=== PATIENT | male | born 1940 | race Caucasian/White ===

== ENCOUNTER 2022-10-19 10:30 | Oncology outpatient (recurring) (ONCR) | payer MEDICARE, OTHER, SELFPAY ==
[2022-10-05 16:48] LABS: Basophils % 0.3 %; Eosinophils # 0.4 10^3/uL (0.0-0.8); Eosinophils % 3.8 %; Hematocrit 43.2 % (42.0-52.0); Hemoglobin 15.2 g/dL (11.7-16.6); Lymphocytes # 1.7 10^3/uL (0.8-4.8); Lymphocytes % 17.4 %; Mean Corpuscular HGB Conc 35.2 g/dL (30.0-36.0); Mean Corpuscular Hemoglobin 33.2 pg (28.0-34.0); Mean Corpuscular Volume 94.3 fl (80-94); Mean Platelet Volume 9.9 fL (7.4-10.4); Monocytes # 0.6 10^3/uL (0.2-0.9); Monocytes % 5.8 %; Neutrophils # 6.95 10^3/uL (1.8-7.7); Neutrophils % 72.4 %; Nucleated Red Blood Cells % 0 %; Platelet Count 272 10^3/cmm (130-400); Red Blood Count 4.58 10^6/uL (4.1-5.3); Red Cell Distribution Width 12.3 % (12.1-15.1); White Blood Count 9.6 10^3/uL (4.0-10.0)
[2022-10-05 17:20] VITALS: BP 157/76; PULSE 61; O2SAT 99
[2022-10-19 10:40] VITALS: BP 126/65; PULSE 60; RESP 18; TEMP 36.3; O2SAT 96
[2022-10-19 11:21] LABS: Basophils % 0.4 %; Eosinophils # 0.3 10^3/uL (0.0-0.8); Eosinophils % 4.6 %; Hematocrit 41.8 % (42.0-52.0); Hemoglobin 14.1 g/dL (11.7-16.6); Lymphocytes # 1.7 10^3/uL (0.8-4.8); Lymphocytes % 23.9 %; Mean Corpuscular HGB Conc 33.7 g/dL (30.0-36.0); Mean Corpuscular Hemoglobin 32.3 pg (28.0-34.0); Mean Corpuscular Volume 95.7 fl (80-94); Mean Platelet Volume 9.8 fL (7.4-10.4); Monocytes # 0.4 10^3/uL (0.2-0.9); Monocytes % 6.3 %; Neutrophils # 4.52 10^3/uL (1.8-7.7); Neutrophils % 64.4 %; Nucleated Red Blood Cells % 0 %; Platelet Count 228 10^3/cmm (130-400); Red Blood Count 4.37 10^6/uL (4.1-5.3)
[2022-10-19 13:39] VITALS: BP 137/62; PULSE 66; RESP 16; TEMP 36.8; O2SAT 97
== END 2022-10-25 23:59 | disposition home or self-care (01) ==
PROVIDERS: PCP Family Medicine; Visit Provider Internal Medicine Medical Oncology
DX: E83.110 Hereditary hemochromatosis (principal)
CPT/HCPCS: 36415; 85025; 99195; 99205

== ENCOUNTER 2022-11-13 09:19 | Oncology outpatient (recurring) (ONCR) | payer MEDICARE, OTHER, SELFPAY ==
[2022-11-02 10:12] LABS: Basophils % 0.6 %; Eosinophils # 0.4 10^3/uL (0.0-0.8); Eosinophils % 7.7 %; Hematocrit 38.3 % (42.0-52.0); Lymphocytes # 1.5 10^3/uL (0.8-4.8); Lymphocytes % 32.2 %; Mean Corpuscular HGB Conc 33.9 g/dL (30.0-36.0); Mean Corpuscular Hemoglobin 32.3 pg (28.0-34.0); Mean Corpuscular Volume 95.3 fl (80-94); Mean Platelet Volume 9.7 fL (7.4-10.4); Monocytes # 0.5 10^3/uL (0.2-0.9); Monocytes % 10.3 %; Neutrophils # 2.34 10^3/uL (1.8-7.7); Nucleated Red Blood Cells % 0 %; Platelet Count 240 10^3/cmm (130-400); Red Blood Count 4.02 10^6/uL (4.1-5.3); Red Cell Distribution Width 12.9 % (12.1-15.1); White Blood Count 4.8 10^3/uL (4.0-10.0)
[2022-11-02 10:22] VITALS: BP 134/87; PULSE 75; RESP 18; TEMP 36.4; O2SAT 97
[2022-11-02 13:35] VITALS: BP 150/71; PULSE 54; RESP 17; TEMP 36.9; O2SAT 98
--- NOTE | 2022-11-02 13:36 | PC.NURSE ---
Dr Henderson reviewed the lab for today of cbc with iron levels not reported as yet due to breakdown with no phlebotomy today and return 2 weeks.mm
[2022-11-02 13:52] LABS: Ferritin 887 ng/mL (30-400); Iron 133 ug/dL (59-158); Percent Saturation 58.3 % (20-50); Total Iron Binding Capacity 228 mcg/dl; Unsaturated Iron Binding 95 ug/dL (112-347)
[2022-11-02 14:15] VITALS: BP 140/78; PULSE 68; RESP 18; TEMP 36.6; O2SAT 98
--- NOTE | 2022-11-02 16:33 | PC.NURSE ---
Lab results reviewed by Dr Henderson with no phlebotomy today and return in 2 weeks for labs and ov.IV site decontinued with no issues or concerns.sylvia
[2022-11-13 09:31] VITALS: BP 146/70; PULSE 56; RESP 18; TEMP 36.4; O2SAT 97
[2022-11-13 09:51] LABS: Basophils % 0.8 %; Eosinophils # 0.3 10^3/uL (0.0-0.8); Eosinophils % 6.2 %; Hemoglobin 13.7 g/dL (11.7-16.6); Lymphocytes # 1.4 10^3/uL (0.8-4.8); Lymphocytes % 27.9 %; Mean Corpuscular HGB Conc 33.4 g/dL (30.0-36.0); Mean Corpuscular Hemoglobin 32.1 pg (28.0-34.0); Mean Platelet Volume 9.7 fL (7.4-10.4); Monocytes # 0.4 10^3/uL (0.2-0.9); Neutrophils # 2.84 10^3/uL (1.8-7.7); Neutrophils % 56.9 %; Nucleated Red Blood Cells % 0 %; Platelet Count 240 10^3/cmm (130-400); Red Blood Count 4.27 10^6/uL (4.1-5.3)
[2022-11-13 10:06] LABS: Ferritin 608 ng/mL (30-400); Iron 85 ug/dL (59-158); Percent Saturation 37.7 % (20-50); Total Iron Binding Capacity 225 mcg/dl; Unsaturated Iron Binding 140 ug/dL (112-347)
== END 2022-11-24 23:59 | disposition home or self-care (01) ==
PROVIDERS: PCP Family Medicine; Visit Provider Internal Medicine Medical Oncology
DX: E83.110 Hereditary hemochromatosis (principal)
CPT/HCPCS: 36415; 82728; 83540; 83550; 85025; 99213

== ENCOUNTER 2022-12-13 11:45 | Oncology outpatient (recurring) (ONCR) | payer MEDICARE, OTHER, SELFPAY ==
[2022-12-11 09:20] VITALS: BP 149/76; PULSE 68; RESP 18; TEMP 36.3; O2SAT 96
[2022-12-11 09:48] LABS: Basophils % 0.6 %; Eosinophils # 0.4 10^3/uL (0.0-0.8); Eosinophils % 6.4 %; Hematocrit 39.8 % (42.0-52.0); Hemoglobin 13.5 g/dL (11.7-16.6); Lymphocytes # 1.6 10^3/uL (0.8-4.8); Lymphocytes % 23.2 %; Mean Corpuscular HGB Conc 33.9 g/dL (30.0-36.0); Mean Corpuscular Hemoglobin 32.4 pg (28.0-34.0); Mean Corpuscular Volume 95.4 fl (80-94); Mean Platelet Volume 10.4 fL (7.4-10.4); Monocytes # 0.5 10^3/uL (0.2-0.9); Monocytes % 7.4 %; Neutrophils # 4.25 10^3/uL (1.8-7.7); Neutrophils % 62.1 %; Nucleated Red Blood Cells % 0 %; Platelet Count 246 10^3/cmm (130-400); Red Blood Count 4.17 10^6/uL (4.1-5.3); Red Cell Distribution Width 12.7 % (12.1-15.1); White Blood Count 6.9 10^3/uL (4.0-10.0)
[2022-12-11 10:41] LABS: Ferritin 579 ng/mL (30-400); Iron 76 ug/dL (59-158); Percent Saturation 35.6 % (20-50); Total Iron Binding Capacity 213 mcg/dl; Unsaturated Iron Binding 137 ug/dL (112-347)
[2022-12-13 11:50] VITALS: BP 135/72; PULSE 73; RESP 18; TEMP 36.4; O2SAT 98
[2022-12-13 12:06] VITALS: BP 132/60; PULSE 59; RESP 18; TEMP 36.6; O2SAT 97
[2022-12-13 13:05] VITALS: BP 138/72; PULSE 88; RESP 18; TEMP 36.6; O2SAT 98
--- NOTE | 2022-12-13 16:02 | PC.NURSE ---
Patient returned today for the phlebotomy that was unsuccessful on 12-11 with #18 intracath needle placed in upper left arm with good blood return and 500ml removed by weight. He tolerated it well with no issues or concerns.mm
== END 2022-12-25 23:59 | disposition home or self-care (01) ==
PROVIDERS: Internal Medicine Medical Oncology; PCP Family Medicine; Visit Provider Internal Medicine Medical Oncology
DX: E83.110 Hereditary hemochromatosis (principal)
CPT/HCPCS: 82728; 83540; 83550; 85025; 99195; 99214

== ENCOUNTER 2023-01-08 10:57 | Oncology outpatient (recurring) (ONCR) | payer MEDICARE, OTHER, SELFPAY ==
[2023-01-08 11:56] VITALS: BP 136/68; PULSE 72; RESP 18; TEMP 36.4; O2SAT 96
[2023-01-08 12:10] LABS: Basophils % 0.7 %; Eosinophils # 0.4 10^3/uL (0.0-0.8); Eosinophils % 6.9 %; Hematocrit 40.5 % (42.0-52.0); Hemoglobin 14.1 g/dL (11.7-16.6); Lymphocytes # 1.9 10^3/uL (0.8-4.8); Lymphocytes % 31.4 %; Mean Corpuscular HGB Conc 34.8 g/dL (30.0-36.0); Mean Corpuscular Hemoglobin 32.6 pg (28.0-34.0); Mean Corpuscular Volume 93.5 fl (80-94); Mean Platelet Volume 10.7 fL (7.4-10.4); Monocytes # 0.4 10^3/uL (0.2-0.9); Monocytes % 7.2 %; Neutrophils # 3.19 10^3/uL (1.8-7.7); Neutrophils % 53.6 %; Nucleated Red Blood Cells % 0 %; Platelet Count 248 10^3/cmm (130-400); Red Blood Count 4.33 10^6/uL (4.1-5.3); Red Cell Distribution Width 12.6 % (12.1-15.1)
[2023-01-08 15:20] VITALS: BP 144/72; PULSE 65; RESP 18; TEMP 36.3; O2SAT 95
== END 2023-01-25 23:59 | disposition home or self-care (01) ==
LOC: ONCMED 10:57
PROVIDERS: PCP Family Medicine; Visit Provider Internal Medicine Medical Oncology
DX: E83.110 Hereditary hemochromatosis (principal)
CPT/HCPCS: 36415; 85025; 99195

== ENCOUNTER 2023-02-05 10:27 | Oncology outpatient (recurring) (ONCR) | payer MEDICARE, OTHER, SELFPAY ==
[2023-02-05 10:33] VITALS: BP 159/74; PULSE 65; RESP 18; TEMP 36.3; O2SAT 96
[2023-02-05 10:55] LABS: Basophils % 0.5 %; Eosinophils # 0.3 10^3/uL (0.0-0.8); Eosinophils % 5.1 %; Lymphocytes # 1.8 10^3/uL (0.8-4.8); Lymphocytes % 30.8 %; Mean Corpuscular HGB Conc 34.6 g/dL (30-55); Mean Corpuscular Hemoglobin 32.3 pg (27-33); Mean Corpuscular Volume 93.3 fl (82-101); Mean Platelet Volume 9.9 fL (7.4-10.4); Monocytes # 0.4 10^3/uL (0.2-0.9); Monocytes % 6.6 %; Neutrophils # 3.38 10^3/uL (1.8-7.7); Neutrophils % 56.8 %; Nucleated Red Blood Cells % 0 %; Platelet Count 215 10^3/cmm (157-399); Red Blood Count 4.18 10^6/uL (3.85-5.65); Red Cell Distribution Width 12.5 % (12.1-15.1); White Blood Count 5.94 10^3/uL (3.29-11.43)
[2023-02-05 12:42] VITALS: BP 152/65; PULSE 68; RESP 18; TEMP 36.2; O2SAT 97
== END 2023-02-24 23:59 | disposition home or self-care (01) ==
LOC: ONCMED 10:27
PROVIDERS: PCP Family Medicine; Visit Provider Internal Medicine Medical Oncology
DX: E83.110 Hereditary hemochromatosis (principal)
CPT/HCPCS: 36415; 85025; 99195

== ENCOUNTER 2023-03-12 13:09 | Oncology outpatient (recurring) (ONCR) | payer MEDICARE, OTHER, SELFPAY ==
[2023-03-12 13:20] VITALS: BP 147/84; PULSE 63; RESP 16; TEMP 36.4; O2SAT 97
[2023-03-12 13:47] LABS: Basophils % 0.6 %; Eosinophils # 0.3 10^3/uL (0.0-0.8); Eosinophils % 4.5 %; Hematocrit 41.1 % (37-53); Lymphocytes # 1.9 10^3/uL (0.8-4.8); Lymphocytes % 28.9 %; Mean Corpuscular HGB Conc 34.3 g/dL (30-55); Mean Corpuscular Hemoglobin 32.3 pg (27-33); Mean Corpuscular Volume 94.3 fl (82-101); Mean Platelet Volume 10.1 fL (7.4-10.4); Monocytes # 0.5 10^3/uL (0.2-0.9); Monocytes % 7.6 %; Neutrophils # 3.86 10^3/uL (1.8-7.7); Neutrophils % 58.2 %; Nucleated Red Blood Cells % 0 %; Platelet Count 229 10^3/cmm (157-399); Red Blood Count 4.36 10^6/uL (3.85-5.65); Red Cell Distribution Width 12.7 % (12.1-15.1); White Blood Count 6.62 10^3/uL (3.29-11.43)
[2023-03-12 14:13] LABS: Alanine Aminotransferase 19 U/L (0-41); Albumin Level 4.4 g/dL (3.5-5.2); Alkaline Phosphatase 51 U/L (40-130); Anion Gap 15.1 (5-19); Aspartate Amino Transferase 17 U/L (0-40); Blood Urea Nitrogen 19 mg/dL (8-23); Calcium 9.6 mg/dL (8.5-10.5); Carbon Dioxide 24 mmol/L (22-29); Chloride 99 mmol/L (98-107); Creatinine Clr Calc Pharmacy 61.4142; Ferritin 469 ng/mL (30-400); Globulin 2.8 g/dL (1.3-4.6); Glucose 97 mg/dL (65-115); Iron 80 ug/dL (59-158); Osmolality Calculated 280 mOsm/kg (285-295); Percent Saturation 33.6 % (20-50); Potassium 4.1 mmol/L (3.5-5.1); Sodium 134 mmol/L (136-145); Total Bilirubin 0.5 mg/dL (0.15-1.2); Total Iron Binding Capacity 238 mcg/dl; Total Protein 7.2 g/dL (6.6-8.7); Unsaturated Iron Binding 158 ug/dL (112-347)
[2023-03-12 15:48] VITALS: BP 144/82; PULSE 58; RESP 16; TEMP 36.2; O2SAT 98
[2023-03-14 09:39] LABS: Vitamin B12 383 pg/mL (232-1245)
== END 2023-03-27 23:59 | disposition home or self-care (01) ==
PROVIDERS: PCP Family Medicine; Visit Provider Internal Medicine Medical Oncology
DX: E83.110 Hereditary hemochromatosis (principal); R07.9 Chest pain, unspecified; R06.02 Shortness of breath; Z85.46 Personal history of malignant neoplasm of prostate
CPT/HCPCS: 36415; 80053; 82607; 82728; 83540; 83550; 84443; 85025; 99195; 99214

== ENCOUNTER 2023-03-21 07:50 | Outpatient (CLI) | payer MEDICARE, OTHER, SELFPAY ==
[2023-03-21 07:59] VITALS: BMI 37.4
--- NOTE | 2023-03-21 08:04 | NMCV_ITS ---
NM arianne perf SPECT r/s* [id number] Andreas Castle Age: 82 Gender: M : 1940 Exam Date: 03/21/2023 09:29 Ordering Phys: Miguel Su MD Technologist: CHEL Solis Exam Location: [facility] Indications: CHEST PAIN, SHORTNESS OF BREATH STRESS TEST [facility] IMAGE PROTOCOL Rest/Stress 1 Lexiscan Day Radiopharmaceutical Dose (mCi) Administration Site Administered by Rest: Tc-99m 10.7 IV CHEL Fuller Sestamibi Stress:Tc-99m 32.8 IV CHEL Fuller Sestamibi Rest: 21-Mar-2023 60 Discovery 630 Stress: 21-Mar-2023 30 Discovery 630 0.4mg Lexiscan. Images obtained in supine and prone position. SPECT RESULTS Technical Quality: Excellent Raw Data Analysis: Normal Image Corrections: No attenuation or motion correction applied Summed Stress Score: 3 Summed Rest Score: 1 Summed Difference Score: 3 PERFUSION FINDINGS Small size perfusion abnormality of mild severity of apical lateral wall on stress images. FUNCTIONAL RESULTS (calculated via Gated SPECT) Stress Image LV EF (%): 59 Stress EDV (mL):107 TID: 1.07 Stress ESV (mL):44 FUNCTIONAL FINDINGS: The left ventricle is normal in size. Transient Ischemia Dilatation of 1.1. The left ventricular ejection fraction is normal with a value of 59%. There is normal left ventricular wall thickening. Normal end-diastolic and end-systolic volumes. IMPRESSIONS 1. Small size perfusion abnormality of mild severity of apical lateral wall. This may represent small area of ischemia in LAD/circumflex artery territory. 2. Overall left ventricular systolic function is normal without regional wall motion abnormalities, LVEF=59%. 3. No EKG changes with Lexiscan infusion. Refer to separate report for details. Marina Youssef MD (Electronically Signed) Final Date: 23 March 2023 14:00 S
--- NOTE | 2023-03-21 08:15 | ECG_ITS ---
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 Interpretive Statements NAME OF STUDY: LEXISCAN SESTAMIBI STRESS TEST INDICATION: Shortmess of breath PROCEDURE: At the baseline, the blood pressure was 146/75 mm Hg with a heart rate of 61 bpm and oxygen saturation of 96%. The electrocardiogram showed sinus rhythm, normal axis with normal ST and T's. ??? The Lexiscan was infused over a period of 20 seconds. A total of 0.4 milligrams of Lexiscan was infused. The stress phase was continued for a total of 5 minutes. Heart rate at the end of the stress phase was 68 bpm with a blood pressure of 139/69 mm Hg and oxygen saturation of 98%. The EKG at the peak infusion revealed no significant ST-T wave changes. ??? Sestamibi was injected 20 seconds after the Lexiscan infusion. ??? Blood pressure at the end of the recovery phase was 140/63 mm Hg with a heart rate of 67 beats per minute and oxygen saturation of 97%. ??? CONCLUSION: 1. Normal EKG response to LexiScan infusion. 2. No LexiScan induced chest pain or cardiac arrhythmia. 3. Normal blood pressure and heart rate response. 4. Sestamibi/sestamibi perfusion scan pending; see separate report. Electronically Signed On 04-01-2023 22:30:34 HOSTING ENGINEER by Marina Youssef M.D. [email or web address]
[2023-03-21] MEDS: regadenoson 0.4 Mg/5 ml Syringe IVP (10:17)
[2023-03-21 14:00] VITALS: BP 140/63; PULSE 67
== END 2023-03-21 07:51 | disposition home or self-care (01) ==
LOC: CDL 07:51
PROVIDERS: PCP Family Medicine; Visit Provider Internal Medicine Medical Oncology
DX: R07.9 Chest pain, unspecified (principal); R06.02 Shortness of breath; R94.39 Abnormal result of other cardiovascular function study
CPT/HCPCS: 36415; 78452; 93017; 96374; A9500; J2785

== ENCOUNTER → 2023-03-29 08:36 | Outpatient (BNVA) | payer MEDICARE, OTHER, SELFPAY | PROVIDERS: PCP Family Medicine; Referring Provider Family Medicine; Visit Provider Surgery | DX: R19.8 Other specified symptoms and signs involving the digestive system and abdomen (principal); R10.9 Unspecified abdominal pain | CPT/HCPCS: 99204 ==

== ENCOUNTER 2023-04-09 11:42 | Oncology outpatient (recurring) (ONCR) | payer MEDICARE, OTHER, SELFPAY ==
[2023-04-09 11:56] VITALS: BP 130/70; PULSE 69; RESP 16; TEMP 36.6; O2SAT 93
[2023-04-09 12:14] LABS: Basophils % 0.7 %; Eosinophils # 0.3 10^3/uL (0.0-0.8); Eosinophils % 5.3 %; Hematocrit 40.2 % (37-53); Lymphocytes # 1.7 10^3/uL (0.8-4.8); Lymphocytes % 30.9 %; Mean Corpuscular HGB Conc 33.8 g/dL (30-55); Mean Corpuscular Hemoglobin 31.9 pg (27-33); Mean Corpuscular Volume 94.4 fl (82-101); Monocytes # 0.5 10^3/uL (0.2-0.9); Monocytes % 9.8 %; Neutrophils # 2.91 10^3/uL (1.8-7.7); Neutrophils % 52.9 %; Nucleated Red Blood Cells % 0 %; Platelet Count 214 10^3/cmm (157-399); Red Blood Count 4.26 10^6/uL (3.85-5.65); Red Cell Distribution Width 12.6 % (12.1-15.1)
[2023-04-09 13:46] VITALS: BP 143/70; PULSE 64; TEMP 36.4; O2SAT 96
== END 2023-04-26 23:59 | disposition home or self-care (01) ==
LOC: ONCMED 11:42
PROVIDERS: PCP Family Medicine; Visit Provider Internal Medicine Medical Oncology
DX: E83.110 Hereditary hemochromatosis (principal)
CPT/HCPCS: 36415; 85025; 99195

== ENCOUNTER → 2023-04-17 09:42 | Outpatient (BNVA) | payer MEDICARE, OTHER, SELFPAY | PROVIDERS: PCP Family Medicine; Referring Provider Internal Medicine Medical Oncology; Visit Provider Internal Medicine Cardiovascular Disease | DX: R07.9 Chest pain, unspecified (principal); I11.0 Hypertensive heart disease with heart failure; I50.9 Heart failure, unspecified; R94.39 Abnormal result of other cardiovascular function study | CPT/HCPCS: 99204 ==

== ENCOUNTER 2023-04-25 08:30 | Outpatient (CLI) | payer MEDICARE, OTHER, SELFPAY ==
--- NOTE | 2023-04-25 09:00 | USCV_ITS ---
Andreas Castle Age: 82 Gender: M : 1940 Exam Date: 04/25/2023 08:49 Ordering Phys: Marina Youssef MD ([email or web address]) Technologist: LEROY [place] [facility] [place]: CHRONIC HEART FAILURE BP: 180 / 83 HR: 53 Rhythm: Sinus Technical Quality: Adequate MEASUREMENTS (Male / Female) Normal Values 2D ECHO LVOT Diameter 2.0 cm LV Ejection Fraction MOD 2C 60.2 % LV Ejection Fraction 2C AL 60.7 % LA Diameter 3.1 cm LA Width 3.2 cm LA Height 5.7 cm RA Width 4.3 cm RA Height 4.3 cm Aorta at Sinotubular Diameter 2.2 cm IVC Diameter 1.9 cm M-MODE Aortic Annulus Diameter 2.8 cm LA Ao Ratio MM 1.1 MV E Point Septal Separation 0.7 cm DOPPLER AV Peak Velocity 170.0 cm/s LVOT Peak Velocity 117.0 cm/s AV Area Cont Eq vti 2.7 cm squared AV Area Cont Eq pk 2.2 cm squared MV Peak Velocity 111.0 cm/s MV Area PHT 3.5 cm squared Mitral E to A Ratio 0.8 MV E' Velocity 52.0 cm/s Mitral E to MV E' Ratio 11.5 Mitral E to LV E' Lateral Ratio 10.9 Mitral E to LV E' Septal Ratio 12.4 TR Peak Velocity 274.8 cm/s TR Peak Gradient 30.2 mmHg TR Mean Velocity 230.2 cm/s TR Mean Gradient 22.1 mmHg TR Velocity Time Integral 98.8 cm TV Peak E Velocity 49.0 cm/s Right Atrial Pressure 3.0 mmHg Pulmonary Artery Systolic Pressu 33.2 mmHg PV Peak Velocity 93.0 cm/s RV Acceleration Time 0.1 s RV Ejection Time 0.4 s RV AcT/ET 0.3 FINDINGS Left Ventricle Normal left ventricular size, systolic function and wall thickness, with no regional wall motion abnormalities. Left ventricular ejection fraction is estimated at 65 %. Normal diastolic function. Right Ventricle Normal right ventricular size and systolic function. Right ventricular systolic pressure 33.2 mmHg. Right Atrium Normal right atrial size. Left Atrium Normal left atrial size. Mitral Valve Structurally normal mitral valve. No mitral valve stenosis. Trace mitral valve regurgitation. Aortic Valve Structurally normal trileaflet aortic valve. No aortic valve stenosis. No aortic valve regurgitation. Tricuspid Valve Structurally normal tricuspid valve. No tricuspid valve stenosis. Trace to mild tricuspid valve regurgitation. Pulmonic Valve Pulmonic valve not well visualized. No pulmonary valve stenosis. Trace pulmonary valve regurgitation. Pericardium No pericardial effusion. Aorta Normal size aortic root and proximal ascending aorta. IVC Normal IVC dimension with >50% respiratory change of the inferior vena cava. CONCLUSIONS 1. Normal left ventricular size, systolic function and wall thickness, with no regional wall motion abnormalities. Left ventricular ejection fraction is estimated at 65 %. Normal diastolic function. 2. Trace to mild tricuspid valve regurgitation. 3. Normal pulmonary artery pressure. 4. No prior similar studies to compare. Marina Youssef MD (Electronically Signed) Final Date: 01 May 2023 15:00 S
== END 2023-04-25 08:31 | disposition home or self-care (01) ==
LOC: RAD 08:30
PROVIDERS: PCP Family Medicine; Visit Provider Internal Medicine Cardiovascular Disease
DX: I50.9 Heart failure, unspecified (principal); I07.1 Rheumatic tricuspid insufficiency
CPT/HCPCS: 93306

== ENCOUNTER 2023-05-02 08:02 | Day surgery (SDC) | payer MEDICARE, OTHER, SELFPAY ==
[2023-05-02 08:26] VITALS: BP 193/93; PULSE 69; RESP 18; TEMP 36.4; O2SAT 97; BMI 37.5
[2023-05-02] MEDS: sodium chloride 0.9% 1,000 ML 30 ML IV (08:43)
--- NOTE | 2023-05-02 09:15 | P.ANESASSM_ITS ---
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 Goes away with rest), Arrythmia (Bradycardia), Coronary Artery Disease, Congestive Heart Failure and Hypertension CONCLUSION: 1. Normal EKG response to LexiScan infusion. 2. No LexiScan induced chest pain or cardiac arrhythmia. 3. Normal blood pressure and heart rate response. 4. Sestamibi/sestamibi perfusion scan pending; see separate report. 03/21/23 Lexiscan sestamibi MPI IMPRESSIONS ?1. Small size perfusion abnormality of mild severity of apical lateral wall.? ?This may represent small area of ischemia in LAD/circumflex artery territory. ?2. Overall left ventricular systolic function is normal without regional wall ?motion abnormalities, LVEF=59%. ?3. No EKG changes with Lexiscan infusion.? Refer to separate report for ?details CONCLUSIONS 1. Normal left ventricular size, systolic function and wall thickness, with no regional wall motion abnormalities. Left ventricular ejection fraction is estimated at 65 %. Normal diastolic function. 2. Trace to mild tricuspid valve regurgitation. 3. Normal pulmonary artery pressure. 4. No prior similar studies to compare. BPH Hepatic None reported GI None reported Metabolic Hyperlipidemia, Morbid Obesity and Thyroid Disease Musc/skel Lower Back Pain and Osteoarthritis/DJD RLS Neuropsych Cerebrovascular Accident (1999, no deficits) Anesthetic Plan ASA status: 3 Anesthesia: Anesthesia Evaluation, General and MAC Risk of > 500 ml blood loss (7ml/kg in children): No Medications/Allergies Home Medications Medication Instructions Recorded Confirmed Last Taken Type aspirin 81 mg chewable tablet 81 mg PO DAILY 10/05/22 04/30/23 04/29/23 History fluorouracil 5 % topical cream 1 applic topical BID 10/05/22 04/30/23 04/30/23 History furosemide 40 mg tablet 40 mg PO DAILY 10/05/22 04/30/23 04/29/23 History irbesartan 300 mg tablet 300 mg PO DAILY 10/05/22 04/30/23 05/01/23 History pramipexole 0.125 mg tablet 0.375 mg PO BEDTIME 10/05/22 04/30/23 05/01/23 History primidone 50 mg tablet 25 mg PO BEDTIME 10/05/22 04/30/23 05/01/23 History probenecid 500 mg tablet 250 mg PO BID 10/05/22 04/30/23 04/30/23 History potassium chloride 10 mEq 1 tab PO DAILY 03/29/23 04/30/23 04/30/23 History tablet,extended release tamsulosin 0.4 mg capsule 0.4 mg PO BEDTIME #90 caps 04/09/23 04/30/23 04/30/23 Rx isosorbide mononitrate 60 mg 60 mg PO DAILY #30 tabs 04/17/23 04/30/23 05/01/23 Rx tablet,extended release 24 hr pravastatin 10 mg tablet 10 mg PO DAILY #30 tabs 04/17/23 04/30/23 05/01/23 Rx meclizine 25 mg tablet 25 mg PO PRN 04/30/23 04/30/23 05/01/23 History metronidazole 1 %-mupirocin 2 % 1 ea topical DAILY 04/30/23 04/30/23 04/30/23 History topical ointment Allergies Allergy/AdvReac Type Severity Reaction Status Date / Time morphine Allergy ALGY-Rash Verified 04/30/23 09:33 Current Medications Generic Name Dose Route Start Last Admin Trade Name Claudeq PRN Reason Stop Dose Admin Sodium Chloride 1,000 mls @ 30 mls/hr 05/02/23 08:15 05/02/23 08:43 Sodium Chloride 0.9% IV 05/03/23 08:14 30 mls/hr .Q24H RADHA Administration PFSH Anesthesia Medical History (Updated 04/22/23 @ 04:44 by Marina Youssef MD) CHF NYHA class III Restless leg syndrome Degenerative arthritis Gout Obstructive sleep apnea Hypothyroidism Prostate cancer Hypercholesteremia Hypertension Hereditary hemochromatosis Surgical History (Updated 04/20/23 @ 08:18 by Marina Youssef MD) Hx of colonoscopy 10 yrs ago Hx of shoulder surgery right shoulder History of kimberly hole surgery (02/2011) For hematoma History of brachytherapy (2010) Seed implant for prostate cancer History of bilateral carpal tunnel release H/O bilateral cataract extraction Status post arthroscopic surgery of left knee x 2 History of total knee arthroplasty Bilateral total knee arthroplasty in 2018 Family History Father CAD (coronary artery disease) Other Cancer Hyperlipidemia Hypertension Stroke Denies family history of Diabetes Clotting disorder Dementia Psychiatric illness Chronic kidney disease (CKD) Suicide Anesthesia complication Bleeding disorder Lung disease Social History Smoking and tobacco/nicotine status: never used tobacco/nicotine Alcohol intake: never Data Anesthesia Cardiac Studies: Echocardiogram 04/25/23 Sestamibi Stress Test (Cardiology) 03/21
--- NOTE | 2023-05-02 10:23 | PM.HP ---
Providers/Chief Complaint Primary Care Provider: Amelia Salguero MD Chief Complaint: R19.8, R10.9, Z12.11 History of Present Illness Andreas Castle is a 82 year old male Review of Systems General: Reports: 10 or more systems reviewed and unremarkable except in HPI and below Medications/Allergies Home Medications Medication Instructions Recorded Confirmed Last Taken Type aspirin 81 mg chewable tablet 81 mg PO DAILY 10/05/22 04/30/23 04/29/23 History fluorouracil 5 % topical cream 1 applic topical BID 10/05/22 04/30/23 04/30/23 History furosemide 40 mg tablet 40 mg PO DAILY 10/05/22 04/30/23 04/29/23 History irbesartan 300 mg tablet 300 mg PO DAILY 10/05/22 04/30/23 05/01/23 History pramipexole 0.125 mg tablet 0.375 mg PO BEDTIME 10/05/22 04/30/23 05/01/23 History primidone 50 mg tablet 25 mg PO BEDTIME 10/05/22 04/30/23 05/01/23 History probenecid 500 mg tablet 250 mg PO BID 10/05/22 04/30/23 04/30/23 History potassium chloride 10 mEq 1 tab PO DAILY 03/29/23 04/30/23 04/30/23 History tablet,extended release tamsulosin 0.4 mg capsule 0.4 mg PO BEDTIME #90 caps 04/09/23 04/30/23 04/30/23 Rx isosorbide mononitrate 60 mg 60 mg PO DAILY #30 tabs 04/17/23 04/30/23 05/01/23 Rx tablet,extended release 24 hr pravastatin 10 mg tablet 10 mg PO DAILY #30 tabs 04/17/23 04/30/23 05/01/23 Rx meclizine 25 mg tablet 25 mg PO PRN 04/30/23 04/30/23 05/01/23 History metronidazole 1 %-mupirocin 2 % 1 ea topical DAILY 04/30/23 04/30/23 04/30/23 History topical ointment Allergies Allergy/AdvReac Type Severity Reaction Status Date / Time morphine Allergy ALGY-Rash Verified 04/30/23 09:33 PFSH Acute PFSH: Medical History CHF NYHA class III Restless leg syndrome Degenerative arthritis Gout Obstructive sleep apnea Hypothyroidism Prostate cancer Hypercholesteremia Hypertension Hereditary hemochromatosis Surgical History Hx of colonoscopy 10 yrs ago Hx of shoulder surgery right shoulder History of kimberly hole surgery (02/2011) For hematoma History of brachytherapy (2010) Seed implant for prostate cancer History of bilateral carpal tunnel release H/O bilateral cataract extraction Status post arthroscopic surgery of left knee x 2 History of total knee arthroplasty Bilateral total knee arthroplasty in 2018 Family History Father CAD (coronary artery disease) Other Cancer Hyperlipidemia Hypertension Stroke Denies family history of Diabetes Clotting disorder Dementia Psychiatric illness Chronic kidney disease (CKD) Suicide Anesthesia complication Bleeding disorder Lung disease Social History Smoking and tobacco/nicotine status: never used tobacco/nicotine Alcohol intake: never Vitals/I&O/Wt Last Vital Signs Temp 97.6 F 05/02/23 08:26 Pulse 69 05/02/23 08:26 Resp 18 05/02/23 08:26 BP 193/93 05/02/23 08:26 Pulse Ox 97 05/02/23 08:26 O2 Del Method Room Air 05/02/23 08:26 Weight last 48 hrs Weight 240 lb A&P Assessment and plan (1) Abdominal pain: (2) Alternating constipation and diarrhea: Plan EGD and colonoscopy Attestations Medical Necessity Statement*: Home Coding Level of Care Code Acute Code for Chg Fwd Diagnoses Abdominal pain R10.9 Alternating constipation and diarrhea R19.8
[2023-05-02 10:59] VITALS: BP 128/64; PULSE 70; RESP 18; TEMP 36.3; O2SAT 95
[2023-05-02 11:10] VITALS: BP 151/86; PULSE 67; RESP 18; O2SAT 95
--- NOTE | 2023-05-02 15:55 | ANE.PACU2 ---
Inpatient post-anesthesia follow up: Airway intact: Yes Vital signs: Temperature 97.3 F Pulse Rate 67 Respiratory Rate 18 Blood Pressure 151/86 Pulse Oximetry 95 Oxygen Delivery Me thod Room Air Oxygen Flow Rate Fraction of Inspir ed Oxygen Hydration adequate: Yes Nausea and vomiting: No Pain level: 2 Mental status: Baseline
[2023-05-03 18:29] LABS: Clostridium Difficile PCR NOT DETECTED (NOT DETECTED)
== END 2023-05-02 11:35 | disposition home or self-care (01) ==
PROVIDERS: PCP Family Medicine; Visit Provider Surgery
PROC: 0DJ08ZZ Inspection of Upper Intestinal Tract, Via Natural or Artificial Opening Endoscopic (ICD-10-PCS; CPT 43235; principal; 2023-05-02 09:15)
PROC: 0DJD8ZZ Inspection of Lower Intestinal Tract, Via Natural or Artificial Opening Endoscopic (ICD-10-PCS; CPT 45378; 2023-05-02 09:15)
DX: Z12.11 Encounter for screening for malignant neoplasm of colon (principal); K57.30 Diverticulosis of large intestine without perforation or abscess without bleeding; K29.50 Unspecified chronic gastritis without bleeding; D12.5 Benign neoplasm of sigmoid colon; D12.3 Benign neoplasm of transverse colon; R10.9 Unspecified abdominal pain; R19.8 Other specified symptoms and signs involving the digestive system and abdomen; Z79.82 Long term (current) use of aspirin; G47.33 Obstructive sleep apnea (adult) (pediatric); E03.9 Hypothyroidism, unspecified; Z85.46 Personal history of malignant neoplasm of prostate; N40.0 Benign prostatic hyperplasia without lower urinary tract symptoms; E78.5 Hyperlipidemia, unspecified; Z86.73 Personal history of transient ischemic attack (TIA), and cerebral infarction without residual deficits; E66.01 Morbid (severe) obesity due to excess calories; Z68.37 Body mass index [BMI] 37.0-37.9, adult
CPT/HCPCS: 43239; 45380; 45385; 82274; 83630; 87045; 87177; 87209; 87427; 87449; 87493; 88305; J2704; J7030

== ENCOUNTER 2023-05-07 12:00 | Oncology outpatient (recurring) (ONCR) | payer MEDICARE, OTHER, SELFPAY ==
[2023-05-07 12:37] VITALS: BP 172/83; PULSE 65; RESP 18; TEMP 36.7; O2SAT 100
[2023-05-07 14:56] LABS: Basophils % 0.4 %; Eosinophils # 0.3 10^3/uL (0.0-0.8); Eosinophils % 5.5 %; Hematocrit 36.7 % (37-53); Lymphocytes # 1.6 10^3/uL (0.8-4.8); Lymphocytes % 33.1 %; Mean Corpuscular HGB Conc 34.3 g/dL (30-55); Mean Corpuscular Hemoglobin 32.4 pg (27-33); Mean Corpuscular Volume 94.3 fl (82-101); Mean Platelet Volume 9.9 fL (7.4-10.4); Monocytes # 0.3 10^3/uL (0.2-0.9); Monocytes % 6.2 %; Neutrophils # 2.56 10^3/uL (1.8-7.7); Neutrophils % 54.4 %; Nucleated Red Blood Cells % 0 %; Platelet Count 250 10^3/cmm (157-399); Red Blood Count 3.89 10^6/uL (3.85-5.65); Red Cell Distribution Width 12.7 % (12.1-15.1); White Blood Count 4.71 10^3/uL (3.29-11.43)
[2023-05-07 16:02] VITALS: BP 169/81; PULSE 73; RESP 16; TEMP 36.6; O2SAT 96
== END 2023-05-27 23:59 | disposition home or self-care (01) ==
LOC: ONCMED 12:01
PROVIDERS: PCP Family Medicine; Visit Provider Internal Medicine Medical Oncology
DX: E83.110 Hereditary hemochromatosis (principal)
CPT/HCPCS: 36415; 85025; 99195

== ENCOUNTER → 2023-05-15 12:35 | Outpatient (BNVA) | payer MEDICARE, OTHER, SELFPAY | PROVIDERS: PCP Family Medicine; Visit Provider Nurse Practitioner Family | DX: I11.0 Hypertensive heart disease with heart failure (principal); I50.9 Heart failure, unspecified; R94.39 Abnormal result of other cardiovascular function study | CPT/HCPCS: 99213 ==

== ENCOUNTER → 2023-05-29 13:42 | Outpatient (BNVA) | payer MEDICARE, OTHER, SELFPAY | PROVIDERS: PCP Family Medicine; Visit Provider Surgery | DX: Z09 Encounter for follow-up examination after completed treatment for conditions other than malignant neoplasm (principal) | CPT/HCPCS: 99213 ==

== ENCOUNTER 2023-06-25 12:37 | Oncology outpatient (recurring) (ONCR) | payer MEDICARE, OTHER, SELFPAY ==
[2023-06-25 12:48] VITALS: BP 161/72; PULSE 73; RESP 20; TEMP 36.4; O2SAT 96
[2023-06-25 13:24] LABS: Basophils % 0.6 %; Eosinophils # 0.3 10^3/uL (0.0-0.8); Eosinophils % 6.3 %; Hematocrit 37.3 % (37-53); Lymphocytes # 1.4 10^3/uL (0.8-4.8); Lymphocytes % 27.6 %; Mean Corpuscular HGB Conc 34.3 g/dL (30-55); Mean Corpuscular Hemoglobin 31.9 pg (27-33); Mean Platelet Volume 10.1 fL (7.4-10.4); Monocytes # 0.3 10^3/uL (0.2-0.9); Monocytes % 5.9 %; Neutrophils # 3.02 10^3/uL (1.8-7.7); Neutrophils % 59.4 %; Nucleated Red Blood Cells % 0 %; Platelet Count 205 10^3/cmm (157-399); Red Blood Count 4.01 10^6/uL (3.85-5.65); Red Cell Distribution Width 12.6 % (12.1-15.1); White Blood Count 5.08 10^3/uL (3.29-11.43)
[2023-06-25 13:46] LABS: Alanine Aminotransferase 17 U/L (0-41); Alkaline Phosphatase 56 U/L (40-130); Blood Urea Nitrogen 19 mg/dL (8-23); Calcium 8.6 mg/dL (8.5-10.5); Carbon Dioxide 23 mmol/L (22-29); Chloride 103 mmol/L (98-107); Ferritin 401 ng/mL (30-400); Globulin 2.9 g/dL (1.3-4.6); Glucose 152 mg/dL (65-115); Iron 64 ug/dL (59-158); Osmolality Calculated 289 mOsm/kg (285-295); Sodium 137 mmol/L (136-145); Total Bilirubin 0.3 mg/dL (0.15-1.2); Total Protein 6.9 g/dL (6.6-8.7)
[2023-06-25 13:51] LABS: Anion Gap 15.1 (5-19); Aspartate Amino Transferase 18 U/L (0-40); Percent Saturation 28.3 % (20-50); Potassium 4.1 mmol/L (3.5-5.1); Total Iron Binding Capacity 226 mcg/dl; Unsaturated Iron Binding 162 ug/dL (112-347)
[2023-06-25 15:05] VITALS: BP 166/72; PULSE 69; RESP 16; TEMP 36.2; O2SAT 97
== END 2023-06-27 23:59 | disposition home or self-care (01) ==
PROVIDERS: PCP Family Medicine; Visit Provider Internal Medicine Medical Oncology
DX: Z53.9 Procedure and treatment not carried out, unspecified reason (principal); I11.0 Hypertensive heart disease with heart failure; I50.9 Heart failure, unspecified; E83.110 Hereditary hemochromatosis; Z79.899 Other long term (current) drug therapy
CPT/HCPCS: 80053; 82728; 83540; 83550; 85025; 99195; 99214

== ENCOUNTER 2023-07-26 10:00 | Oncology outpatient (recurring) (ONCR) | payer MEDICARE, OTHER, SELFPAY ==
[2023-07-26 10:30] LABS: Basophils % 0.7 %; Eosinophils # 0.3 10^3/uL (0.0-0.8); Eosinophils % 4.7 %; Hematocrit 39.8 % (37-53); Lymphocytes # 1.4 10^3/uL (0.8-4.8); Lymphocytes % 23.9 %; Mean Corpuscular HGB Conc 33.7 g/dL (30-55); Mean Corpuscular Hemoglobin 31.6 pg (27-33); Mean Corpuscular Volume 93.9 fl (82-101); Mean Platelet Volume 10.2 fL (7.4-10.4); Monocytes # 0.4 10^3/uL (0.2-0.9); Monocytes % 7.5 %; Neutrophils # 3.72 10^3/uL (1.8-7.7); Nucleated Red Blood Cells % 0 %; Platelet Count 234 10^3/cmm (157-399); Red Blood Count 4.24 10^6/uL (3.85-5.65); Red Cell Distribution Width 12.9 % (12.1-15.1)
[2023-07-26 11:29] VITALS: BP 176/74; PULSE 64; O2SAT 98
== END 2023-07-26 23:59 | disposition home or self-care (01) ==
LOC: ONCMED 10:01
PROVIDERS: PCP Family Medicine; Visit Provider Internal Medicine Medical Oncology
DX: E83.110 Hereditary hemochromatosis (principal)
CPT/HCPCS: 36415; 85025; 99195

== ENCOUNTER 2023-08-24 09:05 | Oncology outpatient (recurring) (ONCR) | payer MEDICARE, OTHER, SELFPAY ==
[2023-08-24 10:17] LABS: Basophils # 0.1 10^3/uL (0.0-0.1); Basophils % 0.7 %; Eosinophils # 0.4 10^3/uL (0.0-0.8); Eosinophils % 4.9 %; Hematocrit 39.3 % (37-53); Lymphocytes # 1.8 10^3/uL (0.8-4.8); Lymphocytes % 24.8 %; Mean Corpuscular HGB Conc 34.4 g/dL (30-55); Mean Corpuscular Volume 93.1 fl (82-101); Mean Platelet Volume 9.9 fL (7.4-10.4); Monocytes # 0.5 10^3/uL (0.2-0.9); Monocytes % 7.2 %; Neutrophils # 4.44 10^3/uL (1.8-7.7); Neutrophils % 62.3 %; Nucleated Red Blood Cells % 0 %; Platelet Count 218 10^3/cmm (157-399); Red Blood Count 4.22 10^6/uL (3.85-5.65); Red Cell Distribution Width 12.8 % (12.1-15.1); White Blood Count 7.13 10^3/uL (3.29-11.43)
[2023-08-24 11:10] VITALS: BP 132/74; PULSE 63; RESP 16; O2SAT 95
[2023-08-24 11:25] VITALS: BP 137/77; PULSE 64; RESP 18; O2SAT 94
== END 2023-08-26 23:59 | disposition home or self-care (01) ==
LOC: ONCMED 09:05
PROVIDERS: PCP Family Medicine; Visit Provider Internal Medicine Medical Oncology
DX: E83.110 Hereditary hemochromatosis (principal)
CPT/HCPCS: 36415; 85025; 99195

== ENCOUNTER → 2023-09-18 11:20 | Outpatient (BNVA) | payer MEDICARE, OTHER, SELFPAY | PROVIDERS: PCP Family Medicine; Visit Provider Internal Medicine Cardiovascular Disease | DX: R06.02 Shortness of breath (principal); Z79.01 Long term (current) use of anticoagulants; I48.91 Unspecified atrial fibrillation; I25.118 Atherosclerotic heart disease of native coronary artery with other forms of angina pectoris; I50.9 Heart failure, unspecified; R94.39 Abnormal result of other cardiovascular function study; R07.9 Chest pain, unspecified; I45.10 Unspecified right bundle-branch block; I10 Essential (primary) hypertension; E78.00 Pure hypercholesterolemia, unspecified; I50.32 Chronic diastolic (congestive) heart failure; E03.9 Hypothyroidism, unspecified | CPT/HCPCS: 80048; 83880; 85025; 85610; 86850; 86900; 93005; 99215 ==

== ENCOUNTER 2023-09-24 09:07 | Oncology outpatient (recurring) (ONCR) | payer MEDICARE, OTHER, SELFPAY ==
[2023-09-24 09:30] LABS: Basophils % 0.4 %; Eosinophils # 0.4 10^3/uL (0.0-0.8); Hematocrit 38.3 % (37-53); Lymphocytes # 1.7 10^3/uL (0.8-4.8); Lymphocytes % 23.2 %; Mean Corpuscular HGB Conc 34.7 g/dL (30-55); Mean Corpuscular Volume 92.1 fl (82-101); Mean Platelet Volume 9.4 fL (7.4-10.4); Monocytes # 0.7 10^3/uL (0.2-0.9); Monocytes % 9.1 %; Neutrophils # 4.64 10^3/uL (1.8-7.7); Nucleated Red Blood Cells % 0 %; Platelet Count 239 10^3/cmm (157-399); Red Blood Count 4.16 10^6/uL (3.85-5.65); Red Cell Distribution Width 12.7 % (12.1-15.1); White Blood Count 7.47 10^3/uL (3.29-11.43)
[2023-09-24 09:48] LABS: Alanine Aminotransferase 14 U/L (0-41); Albumin Level 4.1 g/dL (3.5-5.2); Alkaline Phosphatase 61 U/L (40-130); Anion Gap 16.1 (5-19); Aspartate Amino Transferase 15 U/L (0-40); Blood Urea Nitrogen 26 mg/dL (8-23); Carbon Dioxide 25 mmol/L (22-29); Chloride 101 mmol/L (98-107); Ferritin 374 ng/mL (30-400); Globulin 2.7 g/dL (1.3-4.6); Glucose 114 mg/dL (65-115); Iron 46 ug/dL (59-158); Osmolality Calculated 292 mOsm/kg (285-295); Percent Saturation 23.3 % (20-50); Potassium 4.1 mmol/L (3.5-5.1); Sodium 138 mmol/L (136-145); Total Bilirubin 0.5 mg/dL (0.15-1.2); Total Iron Binding Capacity 197 mcg/dl; Total Protein 6.8 g/dL (6.6-8.7); Unsaturated Iron Binding 151 ug/dL (112-347)
[2023-09-24 11:50] VITALS: BP 148/80; PULSE 64; RESP 16; TEMP 36.2; O2SAT 98
== END 2023-09-25 23:59 | disposition home or self-care (01) ==
PROVIDERS: PCP Family Medicine; Visit Provider Internal Medicine Medical Oncology
DX: E83.110 Hereditary hemochromatosis (principal); Z79.899 Other long term (current) drug therapy
CPT/HCPCS: 36415; 80053; 82728; 83540; 83550; 85025; 99195; 99214

== ENCOUNTER 2023-10-04 06:52 | Outpatient (CLI) | payer MEDICARE, OTHER, SELFPAY ==
[2023-10-04] VITALS (14 sets, daily range): BP systolic 114–175; BP diastolic 65–94; PULSE 48–97; RESP 16–25; TEMP 36.8–37.1; O2SAT 89–98; BMI 37.9
[2023-10-04] MEDS: diphenhydrAMINE 50 mg Capsule PO (07:30)
[2023-10-04] MEDS: aspirin 325 mg Tablet PO (07:30)
--- NOTE | 2023-10-04 07:30 | XACV_ITS ---
Exam Room: 2 Ht: 170 cm Wt: 110 kg BSA: 2.33 m2 Gender: Male : 1940 Any Known Allergies: Morphine Exam Priority: Routine Procedure(s): Procedure Description: Diagnostic procedure Procedure Description: PCI procedure Procedure Description: Left Heart Catheterization Procedure Description: Drug Eluting Coronary Stent Procedure Description: PTCA Procedure Description: Miscellaneous Procedure Description: ACT Procedure Description: Coronary Angiography Trevor GARNER; Diagnostic Cath Status: Elective Diagnostic Findings * The left main is a medium caliber vessel with no significant stenotic lesions. * The left anterior descending artery is a small to medium caliber vessel which was found to have mild to moderate diffuse disease in the proximal segment. Right at the origin of the first diagonal branch, there was a high-grade 95% stenosis involving the ostium of the diagonal vessel. The second septal slate handler artery was found to have an ostial around 80% lesion. The distal LAD appears to bifurcate. The appears to taper off to his the LV apex. The first and second septal perforators are small to medium caliber vessels. No other significant stenotic lesions were noted. The proximal and the mid LAD was found to have moderate diffuse coronary calcification. * The left circumflex artery is a small to medium caliber vessel which was found to have moderate to severe disease proximally. Right after giving of a an atrial branch, the artery appears to be totally occluded. There is a high obtuse marginal branch, intermedius artery which was found to have an ostial narrowing of around 50 to 60% in some views. No other significant stenotic lesions in this vessel. * The right coronary artery is a medium to large caliber vessel which appears to have mild diffuse ectasia. Mild to moderate diffuse calcification. 20 to 30% diffuse irregular narrowing was noted in the proximal and the mid segment of the artery. The PLV branch was found to have 40 to 50% diffuse irregular narrowing. The PDA branch was found to have 40 to 50% diffuse irregular narrowing in the proximal and the mid segment of the artery. PCI Status: Elective Interventional Findings * Mid Left Anterior Descendin% stenosis treated with a AB MINI TREK 1.50X12 RX BALLOON, AB MINI TREK 2.00X12 RX BALLOON, AB TREK 2.50X12 RX BALLOON, MDT NC EUPHORA RX 2.30A61AY BALLOON, SHOCKWAVE 2.5X12MM, MDT R JOSE A 2.5X18 JEN, MDT R JOSE A 2.5X15 JEN, and MDT NC EUPHORA RX 2.32L33RR BALLOON. 0% residual stenosis, ERNIE: 3 flow. * Procedure detail: We engaged the left main artery with XB 3.0 guide catheter. 0.014 run-through guidewire was used to cross the stenosis. IV heparin was administered to maintain anticoagulation. We initially tried to proceed with shockwave balloon angioplasty and lithotripsy however the balloon could not cross. We started dilation of heavily calcified mid LAD lesion with 1.5 x 12 mm semicompliant balloon. This was followed by dilation with 2.0 x 12 mm semicompliant balloon. We then predilated with 2.5 x 12 mm semicompliant balloon. Shockwave could still not cross. We then performed high-pressure balloon inflation with 2.5 x 12 mm NC balloon. The lesion yielded at this time. Now we could advance shockwave balloon and performed balloon angioplasty and intravascular lithotripsy with 2.5 x 12 mm shockwave balloon. This was followed with placement of 2.5 x 18 mm resolute Jose A drug-eluting stent in mid LAD. There was residual proximal LAD stenosis which was treated with 2.5 x 15 mm resolute Jose A drug-eluting stent. The stents were to postdilated with 2.5 x 15 mm NC balloon at high pressure. At this time final angiogram was performed that showed excellent stent expansion, ERNIE-3 flow and no residual stenosis in LAD. There was plaque shift at ostium of the diagonal artery however given small size of the artery, it was medically managed. Guidewire and guide catheter were removed. 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 . Conclusions 1. 82-year-old white male with history of hypertension, dyslipidemia, presents with complaints of chest pain and shortness of breath. He had a Myocardial perfusion imaging in February of last year which revealed a small area of fixed and reversible defect in the distribution of the left anterior descending artery/circumflex artery. Initially it was opted to treat him medically. Because of the worsening of the symptoms, in order to further evaluate his coronary status, a cardiac catheterization was recommended. Patient underwent left heart catheterization with left and right coronary angiogram today. The findings are as follows. 2. 1. No significant left main disease.2. High-grade stenosis in the LAD at the takeoff of the first diagonal.3. 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 High obtuse marginal branch(intermedius artery) was found to have an ostial around 50 to 60% stenosis.5. Medium to large caliber dominant right coronary artery was found to have mild diffuse ectasia with a mild to moderate diffuse disease. No significant stenotic lesions.6. Left-ventricular diastolic dysfunction with an LVEDP of 30 mmHg. 3. I reviewed and discussed the cardiac catheterization data with Dr. Becerra. It is thought to be appropriate to consider PCI of the LAD lesion. Possible IFR of the high OM lesion/intermedius artery. Dr. Becerra took over further management of this patient at this point. 4. Severe mid LAD stenosis s/p successful revascularization now with 2 stents. 5. With the guide catheter injection, ostial ramus artery appeared to have 50 to 60% stenosis. Medical management. 6. Mid Left Anterior Descending was treated with a Balloon, Balloon, Balloon, Balloon, Balloon, Drug Eluting Stent, Drug Eluting Stent, and Balloon. Recommendations * Dual antiplatelet therapy with aspirin and plavix for atleast 1 year. * High intensity statin therapy. * Outpatient cardiology follow up in 4 weeks. Interventional RX Recommendation: PCI w/o planned CABG Diagnostic RX Recommendation: PCI w/o planned CABG Anticoagulation: Heparin LV EDP: 30 mmHg Left Ventriculography Findings: * LV gram was not performed because of the concern of dye overload. The LVEDP was 30 mmHg. Pressures Phase:Rest AO : 92 / 36 ( 49 ) @ 9:48:00 AM 90 / 63 ( 76 ) @ 9:48:00 AM 103 / 102 ( 90 ) @ 9:51:00 AM 117 / 74 ( 87 ) @ 9:55:00 AM 137 / 69 ( 96 ) @ 10:02:00 AM 130 / 87 ( 108 ) @ 10:13:00 AM 142 / 81 ( 107 ) @ 10:29:00 AM 133 / 73 ( 99 ) @ 10:37:00 AM 130 / 64 ( 90 ) @ 10:43:00 AM 136 / 60 ( 90 ) @ 10:52:00 AM 133 / 78 ( 103 ) @ 10:59:00 AM 129 / 68 ( 96 ) @ 11:19:00 AM LV : 164 / 8 / 30 @ 10:02:00 AM Clinical Evaluation EBL: 5mL-10mL Procedural Details Procedure Consent Obtained. Pre-Procedure Time Out. Identified patient by full name and date of as verbalized by the patient/guarantor. Does the consent match the physician's order: Yes. Inpatient/Outpatient History & Physical on Chart: Yes. Accurate & Complete Informed Consent: Yes. If H&P is completed, is and addenduem needed: No; If yes, is the addendum complete: N/A. Visualize and Verify Site with Patient/Guarantor: N/A. Relevant Radiology Images available: Yes. Pre-op teaching completed and patient verbalized understanding. The risks, benefits, and alternatives of sedation and/or procedure were discussed by physician. The patient agrees to continue. Procedure started. Current Diagnosis : Chest Pain. [facility] Clinical Fraility Score: 3: Managing Well. Head Track Coach Indications: Worsening Angina. Chest Pain Symptom Assessment: Typical Angina Symptoms. Current diagnosis: Chest Pain. PERRLA. Strong, equal hand varnish remover bilaterally. Lungs clear x 5 lobes. IV Site on Arrival: 20 gauge in the left anticubital. IV Fluids: 0.9% NaCl at KVO. 0 mL infused prior to photofinishing laboratory worker. Pre Procedural Pulses: right dorsalis pedis was 2+. Pre Procedural Pulses: left dorsalis pedis was 1+. Pre Procedural Pulses: right posterior tibial was Doppled. Pre Procedural Pulses: left posterior tibial was 1+. Pre Procedural Pulses: right radial was 2+. Oxygen started at 2liters/min via nasal canula. right groin was prepped with chloroprep then draped in the usual sterile fashion. Baseline sample Acquired. HR: 53 BPM. right radial was prepped with chloroprep then draped in the usual sterile fashion. Physician arrived. Physician scrubbed in. Immediate Pre-Procedure Time Out. Correct Patient: Yes; Correct Procedure: Yes; Correct Site: Yes; Correct Patient Position: Yes; Correct Supplies: Yes; Dried Flammable Prep: Yes; Blood Products Available: N/A;. Lidocaine 1% infiltrated to the right radial. Arterial access obtained. A 5 georgian William catheter in over wire. Multiple views taken of left coronary artery. Dr. Becerra called to review films. Dr. Becerra arrived. Catheter removed over the exchange wire. A 5 georgian JR4 catheter in over wire. EDP Sample taken: LV 164/8,30; HR: 75 BPM; SpO2: 98%. Pullback taken: LV Off; AO Off; Mean: , Peak to Peak: , SEP: ; HR: 73 BPM; SpO2: 99%. Multiple views taken of right coronary artery. Catheter removed over the exchange wire. A 5 georgian 3DRC catheter in over wire. Multiple views taken of left coronary artery. Dr. Murray scrubbed out. Catheter attached to Normal Saline flush at KVO to maintain patency. Dr. Becerra scrubbed in to perform intervention. Catheter removed over the exchange wire. 6 georgian XB 3 guide catheter was inserted over the wire. Runthrough guidewire was advanced through the guide catheter to lesion in the prox LAD. Wire out. Exchange wire inserted through the catheter. Wire out. Runthrough guidewire was advanced through the guide catheter to lesion in the mid LAD. Shockwave 2.5x12mm Balloon inserted to lesion in the mid LAD. Balloon unable to cross the lesion. Balloon out OTW. 1.5x12mm Balloon inserted to lesion in the mid LAD. Inflation number : 1 A AB MINI TREK 1.50X12 RX BALLOON was prepped and advanced across the Mid LAD , then inflated to 8 SINAN for 0:06 seconds. Inflation number: 2 The AB MINI TREK 1.50X12 RX BALLOON was reinflated across the Mid LAD, to 8 SINAN for 0:09 seconds. Inflation number: 3 The AB MINI TREK 1.50X12 RX BALLOON was reinflated across the Mid LAD, to 8 SINAN for 0:08 seconds. Inflation number: 4 The AB MINI TREK 1.50X12 RX BALLOON was reinflated across the Mid LAD, to 8 SINAN for 0:07 seconds. Balloon out. Shockwave 2.5x12mm balloon inserted OTW but unable to cross the lesion. Balloon out OTW. 2.0x12mm Balloon inserted to lesion in the mid LAD. Inflation number : 5 A AB MINI TREK 2.00X12 RX BALLOON was prepped and advanced across the Mid LAD , then inflated to 8 SINAN for 0:15 seconds. Inflation number: 6 The AB MINI TREK 2.00X12 RX BALLOON was reinflated across the Mid LAD, to 8 SINAN for 0:08 seconds. Inflation number: 7 The AB MINI TREK 2.00X12 RX BALLOON was reinflated across the Mid LAD, to 10 SINAN for 0:10 seconds. Inflation number: 8 The AB MINI TREK 2.00X12 RX BALLOON was reinflated across the Mid LAD, to 10 SINAN for 0:08 seconds. Balloon out. Shockwave 2.5x12mm balloon inserted OTW but unable to cross the lesion. Balloon out OTW. Wire being repositioned in the distal LAD. Shockwave 2.5x12mm balloon inserted OTW but unable to cross the lesion. Balloon out OTW. 2.5x12mm Balloon inserted to lesion in the mid LAD. Inflation number : 9 A AB TREK 2.50X12 RX BALLOON was prepped and advanced across the Mid LAD , then inflated to 12 SINAN for 0:30 seconds. Results checked. Balloon out. 2.5x12mm NC Balloon inserted to lesion in the mid LAD. Inflation number : 10 A MDT NC EUPHORA RX 2.30A21UK BALLOON was prepped and advanced across the Mid LAD , then inflated to 12 SINAN for 0:24 seconds. Shockwave 2.5x12mm Balloon inserted to lesion in the mid LAD. Inflation number : 11 A SHOCKWAVE 2.5X12MM was prepped and advanced across the Mid LAD , then inflated to 4 SINAN for 0:24 seconds. Inflation number: 12 The SHOCKWAVE 2.5X12MM was reinflated across the Mid LAD, to 4 SINAN for 0:18 seconds. Inflation number: 13 The SHOCKWAVE 2.5X12MM was reinflated across the Mid LAD, to 4 SINAN for 0:12 seconds. Balloon out. 2.5x15mm NC Balloon inserted OTW. Balloon out. Inflation Number : 14 A MDT R JOSE A 2.5X18 JEN -Lot Number# _[id number] EXP: 09/14/2024 was prepped and advanced across the Mid LAD. The stent was deployed at 12 SINAN for 0:16 seconds. Stent balloon out over wire. Results checked. Inflation Number : 15 A MDT R JOSE A 2.5X15 JEN -Lot Number# _[id number]_ EXP: 06/29/2024 was prepped and advanced across the Mid LAD. The stent was deployed at 12 SINAN for 0:17 seconds. Stent balloon out over wire. Inflation number : 16 A MDT NC EUPHORA RX 2.41G34BF BALLOON was prepped and advanced across the Mid LAD , then inflated to 12 SINAN for 0:11 seconds. Balloon out. Results checked. Wire out. ACT drawn. Results 327 seconds. Therapeutic limits - pre-heparin administration 90-150 seconds and monitoring heparin during a vascular procedure >250 seconds. Guide catheter out. A TR Band was successful obtaining hemostatsis at the Right Radial artery insertion site. Post Procedure: Pulses reassessed and unchanged. PERRLA. Strong, equal hand varnish remover bilaterally. No VTE prophylaxis required. Medication's Wasted: Nitro = 49.5 mcg. Medication's Wasted: Heparin = 4000 units. Medication's Wasted: Lidocaine 1% = 17 mL. Complications: None. Estimated blood loss: 5mL-10mL. Responsiveness - Normal response to verbal stimuli; alert and oriented, PERRLA. Airway - Unaffected, no intervention required; spontaneous ventilation. Circulation: W/N/L, pulses unchanged. Nausea/Vomiting: No. Procedure completed. Patient transferred by wheelchair to CPRU. Vital chart was stopped. Access Site Site: Right Radial artery Sheath Size: 6 Fr Hemostasis Method: TR Band Hemostasis Success: Successful Procedure Medications Start: 8:29 AM Stop: 8:29 AM Medication: Fentanyl Amount: 50 mcg Route: I.V. Start: 8:34 AM Stop: 8:34 AM Medication: Versed Amount: 1 mg Route: I.V. Start: 8:38 AM Stop: 8:38 AM Medication: Versed Amount: 1 mg Route: I.V. Start: 8:42 AM Stop: 8:42 AM Medication: Verapamil Amount: 5 mg Route: I.A. Start: 8:43 AM Stop: 8:43 AM Medication: Nitrogylcerin Amount: 200 mcg Route: I.A. Start: 8:44 AM Stop: 8:44 AM Medication: 0.9% Saline Amount: 250 ml Route: I.V. bolus Start: 8:44 AM Stop: 8:44 AM Medication: Fentanyl Amount: 50 mcg Route: I.V. Start: 8:48 AM Stop: 8:48 AM Medication: Heparin Amount: 5000 units Route: I.V. Start: 8:51 AM Stop: 8:51 AM Medication: Versed Amount: 1 mg Route: I.V. Start: 9:16 AM Stop: 9:16 AM Medication: Fentanyl Amount: 25 mcg Route: I.V. Start: 9:16 AM Stop: 9:16 AM Medication: Versed Amount: 1 mg Route: I.V. Start: 9:25 AM Stop: 9:25 AM Medication: Fentanyl Amount: 25 mcg Route: I.V. Start: 9:29 AM Stop: 9:29 AM Medication: Heparin Amount: 5000 units Route: I.V. Start: 9:35 AM Stop: 9:35 AM Medication: Versed Amount: 1 mg Route: I.V. Start: 9:39 AM Stop: 9:39 AM Medication: Heparin Amount: 1000 units Route: I.V. Start: 9:48 AM Stop: 9:48 AM Medication: Fentanyl Amount: 50 mcg Route: I.V. Start: 9:54 AM Stop: 9:54 AM Medication: Nitrogylcerin Amount: 300 mcg Route: I.C. Start: 9:57 AM Stop: 9:57 AM Medication: Heparin Amount: 1000 units Route: I.V. Start: 10:01 AM Stop: 10:01 AM Medication: Versed Amount: 1 mg Route: I.V. Start: 10:10 AM Stop: 10:10 AM Medication: Nitrogylcerin Amount: 300 mcg Route: I.C. Start: 10:22 AM Stop: 10:22 AM Medication: Plavix Amount: 600 mg Route: P.O. I, the attending physician, have reviewed and verified all procedure medications. Yes, all medications given per verbal order History/Risk Factors Hypertension: Yes Dyslipidemia: Yes Peripheral Arterial Disease (PAD): No Myocardial Infarction (FL): No Obesity: No Renal Disease: No Tobacco Use: Never Prior Interventions PCI: No CABG: No Valve Surgery: No Report Signatures Interventional Workflow Finalized by Ru Becerra MD on 10/06/2023 10:25 PM Diagnostic Workflow Finalized by Dr Adore Murray MD [facility] on 10/05/2023 06:39 PM
[2023-10-04 07:46] LABS: Basophils % 0.5 %; Eosinophils # 0.4 10^3/uL (0.0-0.8); Eosinophils % 6.6 %; Hematocrit 38.8 % (37-53); Lymphocytes # 1.6 10^3/uL (0.8-4.8); Lymphocytes % 27.4 %; Mean Corpuscular HGB Conc 33.2 g/dL (30-55); Mean Corpuscular Hemoglobin 31.7 pg (27-33); Mean Corpuscular Volume 95.3 fl (82-101); Mean Platelet Volume 9.9 fL (7.4-10.4); Monocytes # 0.5 10^3/uL (0.2-0.9); Monocytes % 8.1 %; Neutrophils # 3.39 10^3/uL (1.8-7.7); Neutrophils % 57.2 %; Nucleated Red Blood Cells % 0 %; Platelet Count 207 10^3/cmm (157-399); Red Blood Count 4.07 10^6/uL (3.85-5.65); Red Cell Distribution Width 13.2 % (12.1-15.1); White Blood Count 5.92 10^3/uL (3.29-11.43)
[2023-10-04 08:00] LABS: Blood Urea Nitrogen 21 mg/dL (8-23); Calcium 9.2 mg/dL (8.5-10.5); Carbon Dioxide 22 mmol/L (22-29); Chloride 102 mmol/L (98-107); Creatinine Clr Calc Pharmacy 62.2536; Glucose 111 mg/dL (65-115); Osmolality Calculated 286 mOsm/kg (285-295); Sodium 136 mmol/L (136-145)
--- NOTE | 2023-10-04 08:22 | W.PM.OPSUD ---
Surgery/Procedure H&P Update DATE OF PROCEDURE: October 04, 2023 DATE H&P PERFORMED: 09/18/23 H&P UPDATE INFORMATION: I have reviewed H&P completed within last 30 days, I have examined patient prior to procedure and No changes to prior documentation PREOP DIAGNOSIS: ASHD PRIMARY INDICATION FOR PROCEDURE: Multiple risk factors for coronary artery disease. Worsening chest pain and shortness of breath, abnormal Myocardial perfusion imaging PLANNED PROCEDURE: Operation Date: 10/04/23 08:30 Proposed Procedures p Cardiac Catheterization 00643, I50.9, R94.39,(Left) - Adore Murray MD PATIENT REASSESSED PRIOR TO SEDATION, WITH NO CHANGE NOTED: Yes PHYSICAL EXAM: alert, oriented x 3, clear to auscultation bilaterally and regular rate & rhythm AIRWAY EVAL/ANESTHESIA PLAN: normal airway, see other exam findings, ASA III, Monitored Anesthesia, Local Anesthesia, Risks, benefits & alternatives of sedation and/or procedure discussed and Patient agrees to continue as planned
[2023-10-04 08:40] LABS: Anion Gap 16.1 (5-19); Potassium 4.1 mmol/L (3.5-5.1)
--- NOTE | 2023-10-04 10:30 | SUR.EXTENDED ---
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 Patient ambulated to the cot without difficulty. A & 0 x 3. bruise trimmer placed and vital signs obtained. TR band intact to the right wrist. No bleeding or hematoma noted. Palpable radial pulse. No other assessment changes noted from pre cath assessment. Will transfer to room 112-1 after recovery. Family at bedside. No concerns voiced at this time.
--- NOTE | 2023-10-04 11:01 | SUR.EXTENDED ---
Patient transferred via wheelchair to [facility] with family
[2023-10-04] MEDS: FUROsemide 40 mg Tablet PO (17:58)
[2023-10-04] MEDS: metoprolol tartrate 25 mg Tablet 12.5 MG PO (17:58)
[2023-10-04] MEDS: primidone 50 mg Tablet 25 MG PO (20:12)
[2023-10-04] MEDS: pramipexole 0.25 mg Tablet 0.375 MG PO (20:13)
--- NOTE | 2023-10-04 22:45 | PC.NURSE ---
patient stated that he fell getting up to void in urinal and wires were pulled off, patient assessed for injuries, no injuries noted, when asked if he hit his head, patient stated no, that he was not hurt, when asked what happened, patient stated that he thinks he hit his toe and lost balance, patient was wearing nonslip socks at the time, bedside table with urinal moved closer to bed and patient instructed to call for assistance, IV was pulled out, restarted IV, vital signs and neurochecks assessed and documented, no bleeding or hematoma noted to right radial cath site, palpable radial pulse, Dr Murray notified and ordered neurochecks, fall precautions in place, continue to monitor
[2023-10-05] VITALS (7 sets, daily range): BP systolic 135–167; BP diastolic 68–83; PULSE 52–70; RESP 18–28; TEMP 36.3–36.5; O2SAT 92–96
[2023-10-05] MEDS: isosorbide mononitrate ER 60 mg Tablet PO (08:23)
[2023-10-05] MEDS: metoprolol tartrate 25 mg Tablet 12.5 MG PO (08:23)
[2023-10-05] MEDS: pantoprazole DR 40 mg Tablet PO (08:24)
[2023-10-05] MEDS: losartan 50 mg Tablet PO (08:24)
[2023-10-05] MEDS: clopidogrel 75 mg Tablet PO (08:24)
[2023-10-05] MEDS: aspirin 81 mg Chew Tablet PO (08:24)
[2023-10-05] MEDS: tamsulosin 0.4 mg Capsule 0.400000000000000022 MG PO (08:24)
[2023-10-05] MEDS: atorvastatin 40 mg Tablet PO (08:25)
--- NOTE | 2023-10-05 09:23 | PC.NURSE ---
lasix wasted in pyxis since nurse already opened it but pt refused to take it this morning for Discharge anticipation Travel to home is about an hour per pt.
--- NOTE | 2023-10-05 09:53 | P.PN_ITS ---
Subjective 2 Subjective: The patient had the cardiac catheterization yesterday followed by PCI. He did well following the procedure. No hematoma bleeding from the radial arterial puncture site. Telemetry shows sinus rhythm. No significant arrhythmias are noted. He has been ambulating on telemetry without any specific complaints. Medications: Medication Review Details: Current Medications Aspirin (Aspirin 81 Mg Chew Tablet) 81 mg PO DAILY [facility] Last Admin: 10/05/23 08:24 Dose: 81 mg Atorvastatin Calcium (Atorvastatin 40 Mg Tablet) 40 mg PO DAILY [facility] Last Admin: 10/05/23 08:25 Dose: 40 mg Clopidogrel Bisulfate (Clopidogrel 75 Mg Tablet) 75 mg PO DAILY [facility] Last Admin: 10/05/23 08:24 Dose: 75 mg Furosemide (Furosemide 40 Mg Tablet) 40 mg PO BID [facility] Last Admin: 10/05/23 08:32 Dose: Not Given Isosorbide Mononitrate (Isosorbide Mononitrate Er 60 Mg Tablet) 60 mg PO DAILY [facility] Last Admin: 10/05/23 08:23 Dose: 60 mg Losartan Potassium (Losartan 50 Mg Tablet) 50 mg PO DAILY [facility] Last Admin: 10/05/23 08:24 Dose: 50 mg Meclizine HCl (Meclizine 25 Mg Tablet) 25 mg PO QID PRN PRN Reason: Vertigo Metolazone (Metolazone 5 Mg Tablet) 2.5 mg PO DAILY [facility] Last Admin: 10/05/23 08:34 Dose: Not Given Metoprolol Tartrate (Metoprolol Tartrate 25 Mg Tablet) 12.5 mg PO BID [facility] Last Admin: 10/05/23 08:23 Dose: 12.5 mg Nitroglycerin (Nitroglycerin 0.4 Mg Sublingual Tablet) 0.4 mg SUBLINGUAL Q5M PRN PRN Reason: chest pain Non-Formulary Medication (Fluorouracil) 1 applic TOPICAL BID [facility] Last Admin: 10/05/23 08:10 Dose: Not Given Non-Formulary Medication (Metronidazole-Mupirocin) 1 each TOPICAL DAILY PRN PRN Reason: Rash Non-Formulary Medication (Probenecid) 250 mg PO BID [facility] Last Admin: 10/05/23 08:26 Dose: Not Given Pantoprazole Sodium (Pantoprazole Dr 40 Mg Tablet) 40 mg PO DAILY [facility] Last Admin: 10/05/23 08:24 Dose: 40 mg Potassium Chloride (Potassium Chloride Er 10 Meq Tablet) 10 meq PO DAILY [facility] Last Admin: 10/05/23 09:22 Dose: Not Given Pramipexole Dihydrochloride (Pramipexole 0.25 Mg Tablet) 0.375 mg PO BEDTIME [facility] Last Admin: 10/04/23 20:13 Dose: 0.375 mg Primidone (Primidone 50 Mg Tablet) 25 mg PO BEDTIME [facility] Last Admin: 10/04/23 20:12 Dose: 25 mg Tamsulosin HCl (Tamsulosin 0.4 Mg Capsule) 0.4 mg PO DAILY [facility] Last Admin: 10/05/23 08:24 Dose: 0.4 mg Vitals/I&O/Wt Last Vital Signs Temp 97.7 F 10/05/23 08:00 Pulse 70 10/05/23 08:00 Resp 28 H 10/05/23 08:00 BP 164/71 10/05/23 08:24 Pulse Ox 96 10/05/23 08:00 O2 Del Method Room Air 10/05/23 08:00 10/04/23 10/05/23 10/05/23 22:59 06:59 14:59 Intake Total 360 / 360 Output Total 350 / 350 1150 / 1500 Balance -1150 / -1140 Weight last 48 hrs Weight 256 lb 4.8 oz Weight 242 lb Weight 242 lb Weight 242 lb Physical Exam 2 Narrative: GENERAL: The patient is alert and oriented times three. Not in any acute distress. HEENT: No significant pallor, icterus or lymphadenopathy.Oral cavity: There are no mucous membrane lesions. NECK: Trachea appears to be central. No masses noted. No JVD or thyromegaly appreciated. RESPIRATORY: Chest is symmetrical. No intercostals muscle retraction or any accessory muscle activation. There is no chest wall tenderness. Breath sounds are heard bilaterally. No rales or rhonchi heard. No evidence of any consolidation. BREASTS: Deferred. HEART: The heart sounds are normal. No S3 or S4. No significant murmurs. No pericardial rub ABDOMEN: No vessel pulsations or distention. No tenderness. No organomegaly appreciated. Bowel sounds are normally heard. : Deferred. RECTAL: Deferred. LYMPHATIC: No lymphadenopathy noted in the neck. EXTREMITIES: No edema or cyanosis. No clubbing. No hematoma bleeding at the radial arterial puncture site. MUSCULOSKELETAL: No acute joint deformities or swelling SKIN: There are no significant rashes or ecchymosis NEUROPSYCHIATRIC: The patient is alert and oriented x3. Appears to be in a good mood. No tremors or rigidity noted. Data 10/04/23 07:24 10/04/23 07: Other Labs: Laboratory Last Values WBC 5.92 10^3/uL (3.29-11.43) 10/04/23 07: RBC 4.07 10^6/uL (3.85-5.65) 10/04/23 07: Hgb 12.90 g/dL (11.27-16.99) 10/04/23 07: Hct 38.8 % (37-53) 10/04/23 07: MCV 95.3 fl (82-101) 10/04/23 07: MCH 31.7 pg (27-33) 10/04/23 07: MCHC 33.2 g/dL (30-55) 10/04/23 07: RDW 13.2 % (12.1-15.1) 10/04/23 07: Plt Count 207 10^3/cmm (157-399) 10/04/23 07: MPV 9.9 fL (7.4-10.4) 10/04/23 07: Neut % (Auto) 57.2 % 10/04/23 07: Lymph % (Auto) 27.4 % 10/04/23 07:24 Forrest % (Auto) 8.1 % 10/04/23 07:24 Eos % (Auto) 6.6 % 10/04/23 07: Baso % (Auto) 0.5 % 10/04/23 07:24 Neut # (Auto) 3.39 10^3/uL (1.8-7.7) 10/04/23 07: Lymph # (Auto) 1.6 10^3/uL (0.8-4.8) 10/04/23 07: Forrest # (Auto) 0.5 10^3/uL (0.2-0.9) 10/04/23 07:24 Eos # (Auto) 0.4 10^3/uL (0.0-0.8) 10/04/23 07: Baso # (Auto) 0.0 10^3/uL (0.0-0.1) 10/04/23 07:24 Nucleated RBC % (auto) 0 % 10/04/23 07:24 Nucleated RBCs # 0.0 /100WBC 10/04/23 07:24 Sodium 136 mmol/L (136-145) 10/04/23 07:24 Potassium 4.1 mmol/L (3.5-5.1) 10/04/23 07:24 Chloride 102 mmol/L (98-107) 10/04/23 07:24 Carbon Dioxide 22 mmol/L (22-29) 10/04/23 07:24 Anion Gap 16.1 (5-19) 10/04/23 07:24 BUN 21 mg/dL (8-23) 10/04/23 07:24 Creatinine 1.1 mg/dL (0.7-1.2) 10/04/23 07:24 GFR Calculation Not Reportable 10/04/23 07:24 Glucose 111 mg/dL (65-115) 10/04/23 07:24 Calculated Osmolality 286 mOsm/kg (285-295) 10/04/23 07:24 Calcium 9.2 mg/dL (8.5-10.5) 10/04/23 07:24 A&P Assessment and plan (1) Atherosclerotic heart disease of [place] coronary artery with other forms of angina pectoris: Patient status post cardiac catheterization, status post PCI of the mid LAD. Currently remaining stable. Moderate disease in the high diagonal/intermedius artery. Total occlusion of the proximal circumflex artery. Moderate disease in the right coronary artery. (2) Hypertension: Blood pressure seems to be getting under control. Qualifiers: Hypertension type: primary hypertension Qualified Code(s): I10 - Essential (primary) hypertension (3) Hypercholesteremia: I may discontinue the Pravachol and start him on Lipitor 40 mg p.o. daily. (4) CHF NYHA class III: Heart failure seems to be properly treated at this time. Qualifiers: Congestive heart failure chronicity: chronic Congestive heart failure type: diastolic Qualified Code(s): I50.32 - Chronic diastolic (congestive) heart failure Plan Since the patient is remaining stable, he is being discharged home today. Patient will be seen at [facility] in 1 week with the nurse practitioner. Patient will be seen by me in 1 month in the office. Patient is advised to continue the medications as mentioned above. The importance of compliance to diet, medications and exercise were discussed. In the event of the patient developing chest pain ,unusual palpitations or any new symptoms, is advised to contact me or come to the hospital. Attestations 2 Medical Necessity Statement*: Discharge home today Coding Level of Care Code 21956 Diagnoses Atherosclerotic heart disease of [place] coronary artery with other forms of angina pectoris I25.118 Primary hypertension I10 Hypertension type: primary hypertension Hypercholesteremia E78.00 Chronic diastolic congestive heart failure, NYHA class 3 I50.32 Congestive heart failure chronicity: chronic Congestive heart failure type: diastolic
--- NOTE | 2023-10-05 10:33 | PC.NURSE ---
pharmacy called for at[facility]vastatin [facility].
--- NOTE | 2023-10-05 10:34 | PC.NURSE ---
1. No lifting over 5pounds for two days.
--- NOTE | 2023-10-05 10:34 | PC.NURSE ---
Discharge Note Patient discharged to home via private vehicle accompanied by family. Discharge instructions reviewed with patient and/or factory representative. Mobile pharmacy medications and/or prescriptions provided. Belongings/home medications returned.
== END 2023-10-05 10:33 | disposition home or self-care (01) ==
LOC: CCL 06:53 → CSU 11:54
PROVIDERS: Internal Medicine; PCP Family Medicine; Visit Provider Internal Medicine Cardiovascular Disease
DX: I25.118 Atherosclerotic heart disease of native coronary artery with other forms of angina pectoris (principal); I25.82 Chronic total occlusion of coronary artery; E78.00 Pure hypercholesterolemia, unspecified; I11.0 Hypertensive heart disease with heart failure; I50.32 Chronic diastolic (congestive) heart failure; Z79.82 Long term (current) use of aspirin; G47.33 Obstructive sleep apnea (adult) (pediatric); E03.9 Hypothyroidism, unspecified; Z85.46 Personal history of malignant neoplasm of prostate
CPT/HCPCS: 36415; 80048; 85025; 85347; 93458; 96374; 96375; 99152; 99153; C1725; C1769; C1874; C1887; C1894; C9600; J1644; J2250; J3010; J3490; J7030; Q0163; Q9967

== ENCOUNTER → 2023-10-16 15:25 | Outpatient (BNVA) | payer MEDICARE, OTHER, SELFPAY | PROVIDERS: PCP Family Medicine; Visit Provider Nurse Practitioner Family | DX: I50.32 Chronic diastolic (congestive) heart failure (principal); I10 Essential (primary) hypertension | CPT/HCPCS: 36415; 80048; 83880; 99214 ==

== ENCOUNTER 2023-10-23 09:15 | Oncology outpatient (recurring) (ONCR) | payer MEDICARE, OTHER, SELFPAY ==
[2023-10-23 09:39] LABS: Basophils % 0.7 %; Eosinophils # 0.3 10^3/uL (0.0-0.8); Eosinophils % 5.2 %; Hematocrit 37.3 % (37-53); Lymphocytes # 1.5 10^3/uL (0.8-4.8); Lymphocytes % 26.9 %; Mean Corpuscular HGB Conc 33.8 g/dL (30-55); Mean Corpuscular Hemoglobin 32.2 pg (27-33); Mean Corpuscular Volume 95.4 fl (82-101); Mean Platelet Volume 9.9 fL (7.4-10.4); Monocytes # 0.5 10^3/uL (0.2-0.9); Monocytes % 8.2 %; Neutrophils # 3.27 10^3/uL (1.8-7.7); Neutrophils % 58.6 %; Nucleated Red Blood Cells % 0 %; Platelet Count 225 10^3/cmm (157-399); Red Blood Count 3.91 10^6/uL (3.85-5.65); Red Cell Distribution Width 13.7 % (12.1-15.1); White Blood Count 5.58 10^3/uL (3.29-11.43)
[2023-10-23 10:00] LABS: Alanine Aminotransferase 19 U/L (0-41); Albumin Level 4.1 g/dL (3.5-5.2); Alkaline Phosphatase 52 U/L (40-130); Aspartate Amino Transferase 18 U/L (0-40); Blood Urea Nitrogen 17 mg/dL (8-23); Calcium 8.7 mg/dL (8.5-10.5); Carbon Dioxide 24 mmol/L (22-29); Chloride 105 mmol/L (98-107); Ferritin 331 ng/mL (30-400); Globulin 2.9 g/dL (1.3-4.6); Glucose 100 mg/dL (65-115); Iron 90 ug/dL (59-158); Osmolality Calculated 288 mOsm/kg (285-295); Percent Saturation 41.4 % (20-50); Sodium 138 mmol/L (136-145); Total Bilirubin 0.4 mg/dL (0.15-1.2); Total Iron Binding Capacity 217 mcg/dl; Unsaturated Iron Binding 127 ug/dL (112-347)
[2023-10-23 10:40] LABS: Anion Gap 13.7 (5-19); Potassium 4.7 mmol/L (3.5-5.1)
[2023-10-23 10:59] VITALS: BP 136/84; PULSE 88; RESP 16; TEMP 36.6; O2SAT 96
== END 2023-10-26 23:59 | disposition home or self-care (01) ==
PROVIDERS: Nurse Practitioner Family; PCP Family Medicine; Visit Provider Internal Medicine Medical Oncology
DX: E83.110 Hereditary hemochromatosis (principal); Z79.899 Other long term (current) drug therapy; Z95.5 Presence of coronary angioplasty implant and graft
CPT/HCPCS: 36415; 80053; 82728; 83540; 83550; 85025; 99195; 99214

== ENCOUNTER 2023-11-20 13:38 | Oncology outpatient (recurring) (ONCR) | payer MEDICARE, OTHER, SELFPAY ==
[2023-11-20 14:11] LABS: Basophils % 0.3 %; Eosinophils # 0.2 10^3/uL (0.0-0.8); Eosinophils % 2.6 %; Hematocrit 38.4 % (37-53); Lymphocytes # 1.9 10^3/uL (0.8-4.8); Lymphocytes % 25.9 %; Mean Corpuscular HGB Conc 33.6 g/dL (30-55); Mean Corpuscular Hemoglobin 32.3 pg (27-33); Mean Corpuscular Volume 96.2 fl (82-101); Monocytes # 0.3 10^3/uL (0.2-0.9); Monocytes % 3.4 %; Neutrophils # 4.97 10^3/uL (1.8-7.7); Neutrophils % 67.7 %; Nucleated Red Blood Cells % 0 %; Platelet Count 236 10^3/cmm (157-399); Red Blood Count 3.99 10^6/uL (3.85-5.65); Red Cell Distribution Width 13.5 % (12.1-15.1); White Blood Count 7.34 10^3/uL (3.29-11.43)
[2023-11-20 15:14] VITALS: BP 166/72; PULSE 68; RESP 18; O2SAT 94
[2023-11-20 15:29] VITALS: BP 162/74; PULSE 71; RESP 18; O2SAT 95
== END 2023-11-25 23:59 | disposition home or self-care (01) ==
LOC: ONCMED 13:38
PROVIDERS: Nurse Practitioner Family; PCP Family Medicine; Visit Provider Internal Medicine Medical Oncology
DX: E83.110 Hereditary hemochromatosis (principal); Z79.899 Other long term (current) drug therapy
CPT/HCPCS: 36415; 85025; 99195

== ENCOUNTER 2023-12-18 13:08 | Oncology outpatient (recurring) (ONCR) | payer MEDICARE, OTHER, SELFPAY ==
[2023-12-18 13:26] LABS: Basophils % 0.5 %; Eosinophils # 0.2 10^3/uL (0.0-0.8); Eosinophils % 3.2 %; Lymphocytes # 1.1 10^3/uL (0.8-4.8); Lymphocytes % 17.5 %; Mean Corpuscular HGB Conc 32.7 g/dL (30-55); Mean Corpuscular Hemoglobin 32.5 pg (27-33); Mean Corpuscular Volume 99.5 fl (82-101); Mean Platelet Volume 9.8 fL (7.4-10.4); Monocytes # 0.3 10^3/uL (0.2-0.9); Monocytes % 4.5 %; Neutrophils # 4.43 10^3/uL (1.8-7.7); Neutrophils % 73.8 %; Nucleated Red Blood Cells % 0 %; Platelet Count 203 10^3/cmm (157-399); Red Blood Count 3.72 10^6/uL (3.85-5.65); Red Cell Distribution Width 14.5 % (12.1-15.1)
[2023-12-18 13:52] VITALS: BP 141/66; PULSE 61; RESP 18; TEMP 36.2; O2SAT 92
[2023-12-18 13:53] LABS: Blood Urea Nitrogen 23 mg/dL (8-23); Calcium 8.5 mg/dL (8.5-10.5); Carbon Dioxide 22 mmol/L (22-29); Chloride 108 mmol/L (98-107); Glucose 145 mg/dL (65-115); NT Pro B Type Natriuretic Pept 262 pg/mL (0-450); Osmolality Calculated 304 mOsm/kg (285-295); Sodium 144 mmol/L (136-145)
[2023-12-18 14:08] VITALS: BP 156/69; PULSE 78; RESP 16; O2SAT 94
== END 2023-12-26 23:59 | disposition home or self-care (01) ==
PROVIDERS: Internal Medicine Cardiovascular Disease; Nurse Practitioner Family; PCP Family Medicine; Visit Provider Internal Medicine Medical Oncology
DX: E83.110 Hereditary hemochromatosis (principal); Z53.9 Procedure and treatment not carried out, unspecified reason; I25.118 Atherosclerotic heart disease of native coronary artery with other forms of angina pectoris; I11.0 Hypertensive heart disease with heart failure; E78.00 Pure hypercholesterolemia, unspecified; I50.32 Chronic diastolic (congestive) heart failure; E03.9 Hypothyroidism, unspecified; M79.89 Other specified soft tissue disorders; Z79.899 Other long term (current) drug therapy
CPT/HCPCS: 36415; 80048; 83880; 85025; 99195; 99214

== ENCOUNTER 2024-01-15 11:03 | Oncology outpatient (recurring) (ONCR) | payer MEDICARE, OTHER, SELFPAY ==
[2024-01-15 11:26] LABS: Basophils % 0.4 %; Eosinophils # 0.3 10^3/uL (0.0-0.8); Eosinophils % 4.8 %; Lymphocytes # 1.6 10^3/uL (0.8-4.8); Lymphocytes % 23.5 %; Mean Corpuscular HGB Conc 34.1 g/dL (30-55); Mean Corpuscular Hemoglobin 32.2 pg (27-33); Mean Corpuscular Volume 94.4 fl (82-101); Mean Platelet Volume 9.8 fL (7.4-10.4); Monocytes # 0.6 10^3/uL (0.2-0.9); Monocytes % 8.6 %; Neutrophils # 4.32 10^3/uL (1.8-7.7); Neutrophils % 62.6 %; Nucleated Red Blood Cells % 0 %; Platelet Count 223 10^3/cmm (157-399); Red Blood Count 4.13 10^6/uL (3.85-5.65); Red Cell Distribution Width 13.2 % (12.1-15.1)
[2024-01-15 11:41] LABS: Alanine Aminotransferase 23 U/L (0-41); Albumin Level 4.3 g/dL (3.5-5.2); Alkaline Phosphatase 63 U/L (40-130); Blood Urea Nitrogen 22 mg/dL (8-23); Calcium 9.2 mg/dL (8.5-10.5); Carbon Dioxide 24 mmol/L (22-29); Chloride 103 mmol/L (98-107); Ferritin 351 ng/mL (30-400); Globulin 3.1 g/dL (1.3-4.6); Glucose 103 mg/dL (65-115); Iron 103 ug/dL (59-158); Osmolality Calculated 292 mOsm/kg (285-295); Sodium 139 mmol/L (136-145); Total Bilirubin 0.4 mg/dL (0.15-1.2); Total Protein 7.4 g/dL (6.6-8.7)
[2024-01-15 13:12] LABS: Anion Gap 16.4 (5-19); Potassium 4.4 mmol/L (3.5-5.1)
[2024-01-15 13:15] LABS: Percent Saturation 40.5 % (20-50); Total Iron Binding Capacity 254 mcg/dl; Unsaturated Iron Binding 151 ug/dL (112-347)
[2024-01-15 13:16] LABS: Aspartate Amino Transferase 25 U/L (0-40)
--- NOTE | 2024-01-15 13:51 | XRR_ITS ---
PROCEDURE INFORMATION: Exam: XR Right Shoulder Exam date and time: 01/15/2024 1:55 PM Age: 83 years old Clinical indication: Right; Prior surgery; Surgery date: 6+ months; Surgery type: Rotator cuff 15 yrs ago; Patient HX: Swisting with popping shoulder pain on December 10. ; Additional info: Pop with pain since TECHNIQUE: Imaging protocol: Radiologic exam of the right shoulder. Views: 2 or more views. COMPARISON: No relevant prior studies available. FINDINGS: Bones/joints: There is irregularity of the acromion which may be postoperative in nature. There are postoperative changes of rotator cuff repair. There are mild degenerative changes of the glenohumeral joint. No acute fracture or dislocation is noted. Soft tissues: Normal. XR/XR shoulder RT min 2V* [id number] IMPRESSION: 1. No acute osseous abnormality. 2. Postsurgical changes as described above. 3. Degenerative changes of the glenohumeral joint
== END 2024-01-31 09:06 | disposition home or self-care (01) ==
PROVIDERS: Nurse Practitioner Family; PCP Family Medicine; Visit Provider Internal Medicine Medical Oncology
DX: E83.110 Hereditary hemochromatosis (principal); Z53.9 Procedure and treatment not carried out, unspecified reason; Z79.899 Other long term (current) drug therapy; Z95.5 Presence of coronary angioplasty implant and graft; I10 Essential (primary) hypertension; R06.02 Shortness of breath; M25.511 Pain in right shoulder
CPT/HCPCS: 36415; 73030; 80053; 82728; 83540; 83550; 85025; 99195; 99214

== ENCOUNTER 2024-02-14 09:58 | Oncology outpatient (recurring) (ONCR) | payer MEDICARE, OTHER, SELFPAY ==
[2024-02-14 11:01] LABS: Basophils % 0.5 %; Eosinophils # 0.3 10^3/uL (0.0-0.8); Eosinophils % 5.1 %; Hematocrit 36.3 % (37-53); Lymphocytes # 1.5 10^3/uL (0.8-4.8); Lymphocytes % 26.2 %; Mean Corpuscular HGB Conc 33.3 g/dL (30-55); Mean Corpuscular Hemoglobin 32.3 pg (27-33); Mean Corpuscular Volume 96.8 fl (82-101); Mean Platelet Volume 10.2 fL (7.4-10.4); Monocytes # 0.5 10^3/uL (0.2-0.9); Monocytes % 9.8 %; Neutrophils # 3.21 10^3/uL (1.8-7.7); Nucleated Red Blood Cells % 0 %; Platelet Count 209 10^3/cmm (157-399); Red Blood Count 3.75 10^6/uL (3.85-5.65); Red Cell Distribution Width 13.1 % (12.1-15.1); White Blood Count 5.53 10^3/uL (3.29-11.43)
[2024-02-14 13:14] VITALS: BP 137/68
== END 2024-02-25 23:59 | disposition home or self-care (01) ==
PROVIDERS: Nurse Practitioner Family; PCP Family Medicine; Visit Provider Internal Medicine Medical Oncology
DX: E83.110 Hereditary hemochromatosis (principal)
CPT/HCPCS: 36415; 85025; 99195

== ENCOUNTER → 2024-02-18 14:56 | Outpatient (BNVA) | payer MEDICARE, OTHER, SELFPAY | PROVIDERS: PCP Family Medicine; Visit Provider Specialist | DX: M75.101 Unspecified rotator cuff tear or rupture of right shoulder, not specified as traumatic (principal); M12.811 Other specific arthropathies, not elsewhere classified, right shoulder | CPT/HCPCS: 73030; 99204 ==

== ENCOUNTER 2024-02-19 09:55 | Outpatient (CLI) | payer MEDICARE, OTHER, SELFPAY ==
[2024-02-19 10:09] VITALS: PULSE 56; RESP 18; O2SAT 98
[2024-02-19] MEDS: albuterol 2.5 mg/3 mL Neb INHALATION (10:09)
[2024-02-19 10:13] VITALS: PULSE 55
== END 2024-02-19 09:56 | disposition home or self-care (01) ==
LOC: RT 09:55
PROVIDERS: PCP Family Medicine; Visit Provider Family Medicine
DX: R06.00 Dyspnea, unspecified (principal); R94.2 Abnormal results of pulmonary function studies
CPT/HCPCS: 94060; 94729; J7613

== ENCOUNTER 2024-03-18 11:06 | Outpatient (CLI) | payer MEDICARE, OTHER, SELFPAY ==
--- NOTE | 2024-03-18 11:45 | MR_ITS ---
WS: [id number] MRI RIGHT SHOULDER HISTORY: right shoulder pain COMPARISON: 02/18/2024 TECHNIQUE: Multiplanar sequences of the shoulder joint are submitted. Severe AC joint narrowing with fluid. Mild encroachment upon the supraspinatus myotendinous insertion . There is a tiny amount of fluid in the subacromial and subdeltoid bursa. Mild subacromial encroachmen t. Partial subluxation of the biceps tendon. Increased T2 signal in the central biceps tendon but no full-thickness tear. No os acromion. Mild narrowing of the glenohumeral joint. Postoperative anchors are noted in the humeral head from pr ior rotator cuff repair. Surface irregularity surrounding the humeral head. No joint effusion. Marked increased T2 signal and thickening of the distal supraspinatus tendon exten ding over several centimeters. The tendon does not appear to be retracted or completely torn. Mild mu scle atrophy supraspinatus. Additional moderate tendinopathy involving the infraspinatus tendon. Fray ing involving the surfaces of the labrum but no tear. MR/MR shoulder RT wo con* [id number] IMPRESSION: 1. Severe distal supraspinatus tendinopathy. 2. Moderate distal infraspinatus tendinopathy. 3. [place] in the humeral head from prior rotator cuff repair. 4. Severe AC joint arthropathy with encroachment upon the supraspinatus myoten dinous insertion. 5. Mild narrowing the glenohumeral joint. 6. Mild atrophy of the supraspinatus muscle. 7. Partial subluxation biceps tendon with increased signal in the tendon. No f ull-thickness tear.
== END 2024-03-18 11:07 | disposition home or self-care (01) ==
PROVIDERS: PCP Family Medicine; Visit Provider Specialist
DX: M19.011 Primary osteoarthritis, right shoulder (principal); M75.91 Shoulder lesion, unspecified, right shoulder; S43.081A Other subluxation of right shoulder joint, initial encounter; X58.XXXA Exposure to other specified factors, initial encounter
CPT/HCPCS: 73221

== ENCOUNTER 2024-03-20 09:35 | Oncology outpatient (recurring) (ONCR) | payer MEDICARE, OTHER, SELFPAY ==
[2024-03-20 10:22] LABS: Basophils % 0.3 %; Eosinophils # 0.1 10^3/uL (0.0-0.8); Eosinophils % 1.4 %; Hematocrit 38.9 % (37-53); Lymphocytes # 1.6 10^3/uL (0.8-4.8); Lymphocytes % 19.7 %; Mean Corpuscular HGB Conc 32.1 g/dL (30-55); Mean Corpuscular Hemoglobin 30.9 pg (27-33); Mean Platelet Volume 10.2 fL (7.4-10.4); Monocytes # 0.6 10^3/uL (0.2-0.9); Monocytes % 7.3 %; Neutrophils # 5.64 10^3/uL (1.8-7.7); Neutrophils % 70.9 %; Nucleated Red Blood Cells % 0 %; Platelet Count 225 10^3/cmm (157-399); Red Blood Count 4.05 10^6/uL (3.85-5.65); Red Cell Distribution Width 13.2 % (12.1-15.1); White Blood Count 7.95 10^3/uL (3.29-11.43)
[2024-03-20 10:46] VITALS: BP 179/82; PULSE 52; RESP 18; O2SAT 95
[2024-03-20 10:55] VITALS: BP 184/80; PULSE 52; RESP 18; O2SAT 95
== END 2024-03-27 23:59 | disposition home or self-care (01) ==
PROVIDERS: Nurse Practitioner Family; PCP Family Medicine; Visit Provider Internal Medicine Medical Oncology
DX: E83.110 Hereditary hemochromatosis (principal); Z53.9 Procedure and treatment not carried out, unspecified reason
CPT/HCPCS: 36415; 85025; 99195

== ENCOUNTER → 2024-03-24 10:38 | Outpatient (BNVA) | payer MEDICARE, OTHER, SELFPAY | PROVIDERS: PCP Family Medicine; Visit Provider Specialist | DX: M19.011 Primary osteoarthritis, right shoulder (principal); M75.101 Unspecified rotator cuff tear or rupture of right shoulder, not specified as traumatic | CPT/HCPCS: 20610; 99214 ==

== ENCOUNTER 2024-04-01 15:47 | Outpatient (CLI) | payer MEDICARE, OTHER, SELFPAY ==
--- NOTE | 2024-04-01 15:49 | CTR_ITS ---
PROCEDURE INFORMATION: Exam: CT Chest With Contrast; Diagnostic Exam date and time: 04/01/2024 4:50 PM Age: 83 years old Clinical indication: Shortness of breath; Prior surgery; Surgery date: 6+ months; Surgery type: Cardiac stetns; Patient HX: HX of cardiac stents; Additional info: Dyspnea TECHNIQUE: Imaging protocol: Diagnostic computed tomography of the chest with contrast. Radiation optimization: All CT scans at this facility use at least one of these dose optimization techniques: automated exposure control; mA and/or kV adjustment per patient size (includes targeted exams where dose is matched to clinical indication); or iterative reconstruction. Contrast material: OMNI 350; Contrast volume: 100 ml; Contrast route: INTRAVENOUS (IV); COMPARISON: MR shoulder RT wo con* [id number] 03/18/2024 11:53 AM RADIATION DOSE METRICS: Total DLP (mGy-cm): 688 FINDINGS: Lungs: Calcified granuloma in the left lower lobe. No infiltrate, effusion, pneumonia, or pneumothorax. Pleural spaces: Unremarkable. No pneumothorax. No pleural effusion. Heart: Unremarkable. No cardiomegaly. No pericardial effusion. Lymph nodes: Unremarkable. No enlarged lymph nodes. Vasculature: Unremarkable. No aortic aneurysm. Bones/joints: Unremarkable. No acute fracture. Soft tissues: Unremarkable. CT/CT chest w con* [id number] IMPRESSION: No acute cardiopulmonary disease.
[2024-04-01 16:52] LABS: Blood Urea Nitrogen 29 mg/dL (8-23); Creatinine Clr Calc Pharmacy 57.0731
[2024-04-01] MEDS: iohexol 350 mg/mL 500 mL Btl (per mL) IV (16:56)
== END 2024-04-01 15:48 | disposition home or self-care (01) ==
LOC: RAD 15:47
PROVIDERS: PCP Family Medicine; Visit Provider Family Medicine
DX: R06.00 Dyspnea, unspecified (principal)
CPT/HCPCS: 71260; 82565; 84520

== ENCOUNTER 2024-04-02 06:00 | Outpatient (RCR) | payer MEDICARE, OTHER, SELFPAY | END 2024-04-26 23:59 | disposition home or self-care (01) | LOC: MPT 06:00 | PROVIDERS: PCP Family Medicine; Visit Provider Specialist | DX: M25.511 Pain in right shoulder (principal); M54.2 Cervicalgia | CPT/HCPCS: 97110; 97140; 97162 ==

== ENCOUNTER 2024-04-17 10:57 | Oncology outpatient (recurring) (ONCR) | payer MEDICARE, OTHER, SELFPAY ==
[2024-04-17 12:20] LABS: Basophils % 0.7 %; Eosinophils # 0.3 10^3/uL (0.0-0.8); Eosinophils % 4.8 %; Hematocrit 41.8 % (37-53); Lymphocytes # 1.5 10^3/uL (0.8-4.8); Lymphocytes % 26.6 %; Mean Corpuscular HGB Conc 32.8 g/dL (30-55); Mean Corpuscular Volume 94.6 fl (82-101); Mean Platelet Volume 9.8 fL (7.4-10.4); Monocytes # 0.5 10^3/uL (0.2-0.9); Monocytes % 7.9 %; Neutrophils # 3.38 10^3/uL (1.8-7.7); Neutrophils % 59.6 %; Nucleated Red Blood Cells % 0 %; Platelet Count 180 10^3/cmm (157-399); Red Blood Count 4.42 10^6/uL (3.85-5.65); Red Cell Distribution Width 12.6 % (12.1-15.1); White Blood Count 5.67 10^3/uL (3.29-11.43)
[2024-04-17 12:43] LABS: Alanine Aminotransferase 16 U/L (0-41); Alkaline Phosphatase 58 U/L (40-130); Aspartate Amino Transferase 18 U/L (0-40); Blood Urea Nitrogen 18 mg/dL (8-23); Calcium 8.9 mg/dL (8.5-10.5); Carbon Dioxide 21 mmol/L (22-29); Chloride 106 mmol/L (98-107); Creatinine Clr Calc Pharmacy 68.4877; Ferritin 240 ng/mL (30-400); Globulin 2.7 g/dL (1.3-4.6); Glucose 85 mg/dL (65-115); Iron 103 ug/dL (59-158); Osmolality Calculated 291 mOsm/kg (285-295); Sodium 140 mmol/L (136-145); Total Bilirubin 0.4 mg/dL (0.15-1.2); Total Iron Binding Capacity 234 mcg/dl; Total Protein 6.7 g/dL (6.6-8.7); Unsaturated Iron Binding 131 ug/dL (112-347)
[2024-04-17 14:10] VITALS: BP 150/80; PULSE 78; RESP 17; TEMP 36.3; O2SAT 98
== END 2024-04-26 23:59 | disposition home or self-care (01) ==
PROVIDERS: Nurse Practitioner Family; PCP Family Medicine; Visit Provider Internal Medicine
DX: E83.110 Hereditary hemochromatosis (principal)
CPT/HCPCS: 36415; 80053; 82728; 83540; 83550; 85025; 99195; 99214

== ENCOUNTER 2024-04-27 06:30 | Outpatient (RCR) | payer MEDICARE, OTHER, SELFPAY | END 2024-05-27 23:59 | disposition home or self-care (01) | LOC: MPT 06:30 | PROVIDERS: PCP Family Medicine; Visit Provider Specialist | DX: M25.511 Pain in right shoulder (principal); M54.2 Cervicalgia | CPT/HCPCS: 97110; 97140; G0283 ==

== ENCOUNTER 2024-05-06 09:31 | Outpatient (CLI) | payer MEDICARE, OTHER, SELFPAY ==
--- NOTE | 2024-05-06 09:35 | USCV_ITS ---
TinAndreas Age: 83 Gender: M : 1940 Exam Date: 05/06/2024 09:44 Ordering Phys: Lynn Andres MD Technologist: CT Exam Location: [facility] [place] Indication: BP: 130 / 80 HR: 48 Rhythm: Sinus Technical Quality: Adequate MEASUREMENTS (Male / Female) Normal Values 2D ECHO LVOT Diameter 2.1 cm LV Ejection Fraction MOD 4C 68.6 % LV Ejection Fraction MOD 2C 66.4 % LV Ejection Fraction 2C AL 67.9 % LA Diameter 2.9 cm RA Systolic Volume 4C AL 67.8 ml RA Systolic Volume 4C MOD 67.1 ml LA Sys Volume AL 70.0 cm cubed LA Sys Volume Index AL 29.2 cm cubed/m squared Aorta at Sinotubular Diameter 2.3 cm IVC Diameter 2.0 cm M-MODE LA Ao Ratio MM 1.6 AV Cusp Separation MM 1.9 cm DOPPLER AV Peak Velocity 157.0 cm/s LVOT Peak Velocity 94.0 cm/s AV Area Cont Eq vti 2.0 cm squared AV Area Cont Eq pk 2.1 cm squared MV Peak Velocity 109.0 cm/s MV Area PHT 2.8 cm squared Mitral E to A Ratio 1.0 TR Peak Velocity 198.5 cm/s TR Peak Gradient 15.8 mmHg TR Mean Velocity 134.0 cm/s TR Mean Gradient 8.9 mmHg TR Velocity Time Integral 38.0 cm TV Peak E Velocity 98.0 cm/s PV Peak Velocity 121.5 cm/s FINDINGS Left Ventricle Left ventricle is normal in size. LV systolic function is normal with EF of 55 to 60%. No regional wall motion abnormalities are seen. Right Ventricle Normal in size and function Right Atrium Normal in size Left Atrium Normal in size Mitral Valve Structurally normal mitral valve. Mild mitral regurgitation Aortic Valve Mildly thickened aortic valve. No significant stenosis or regurgitation. Tricuspid Valve Mild tricuspid regurgitation. Insufficient TR jet to calculate RVSP. Pulmonic Valve Not well visualized Pericardium Normal Aorta Normal in size IVC Appears to be normal CONCLUSIONS LV systolic function is normal with EF of 55 to 60%. Mild mitral regurgitation. Mild tricuspid regurgitation Compared to prior echocardiogram from 04/2023, no significant changes are seen Ru Becerra MD (Electronically Signed) Final Date: 06 May 2024 18:41 S
== END 2024-05-06 09:32 | disposition home or self-care (01) ==
PROVIDERS: PCP Family Medicine; Visit Provider Internal Medicine
DX: I50.9 Heart failure, unspecified (principal)
CPT/HCPCS: 93306

== ENCOUNTER 2024-05-23 10:00 | Oncology outpatient (recurring) (ONCR) | payer MEDICARE, OTHER, SELFPAY ==
[2024-05-15 15:20] LABS: Basophils % 0.5 %; Eosinophils # 0.2 10^3/uL (0.0-0.8); Eosinophils % 3.4 %; Hematocrit 43.7 % (37-53); Lymphocytes # 1.8 10^3/uL (0.8-4.8); Lymphocytes % 31.6 %; Mean Corpuscular HGB Conc 32.5 g/dL (30-55); Mean Corpuscular Hemoglobin 30.5 pg (27-33); Mean Corpuscular Volume 93.8 fl (82-101); Monocytes # 0.4 10^3/uL (0.2-0.9); Monocytes % 6.6 %; Neutrophils # 3.23 10^3/uL (1.8-7.7); Neutrophils % 57.5 %; Nucleated Red Blood Cells % 0 %; Platelet Count 208 10^3/cmm (157-399); Red Blood Count 4.66 10^6/uL (3.85-5.65); Red Cell Distribution Width 13.9 % (12.1-15.1); White Blood Count 5.61 10^3/uL (3.29-11.43)
[2024-05-15 15:38] LABS: Alanine Aminotransferase 13 U/L (0-41); Albumin Level 4.4 g/dL (3.5-5.2); Alkaline Phosphatase 66 U/L (40-130); Aspartate Amino Transferase 14 U/L (0-40); Blood Urea Nitrogen 17 mg/dL (8-23); Calcium 9.5 mg/dL (8.5-10.5); Carbon Dioxide 25 mmol/L (22-29); Chloride 103 mmol/L (98-107); Ferritin 201 ng/mL (30-400); Globulin 3.1 g/dL (1.3-4.6); Glucose 86 mg/dL (65-115); Iron 102 ug/dL (59-158); Osmolality Calculated 289 mOsm/kg (285-295); Percent Saturation 43.9 % (20-50); Sodium 139 mmol/L (136-145); Total Bilirubin 0.8 mg/dL (0.15-1.2); Total Iron Binding Capacity 232 mcg/dl; Total Protein 7.5 g/dL (6.6-8.7); Unsaturated Iron Binding 130 ug/dL (112-347)
--- NOTE | 2024-05-15 16:58 | PC.NURSE ---
patient ordered to have a phlebotomy, unable to draw any blood off of IV. Patient wanting to reschedule appt due to amount of attempts. patient to come in 05/23/24 for another lab draw and phlebotomy. provider informed.
[2024-05-23 10:22] VITALS: BP 158/65; PULSE 67; RESP 17; TEMP 36.2; O2SAT 95
[2024-05-23 10:34] LABS: Basophils % 0.5 %; Eosinophils # 0.2 10^3/uL (0.0-0.8); Eosinophils % 3.6 %; Lymphocytes # 1.7 10^3/uL (0.8-4.8); Lymphocytes % 29.9 %; Mean Corpuscular HGB Conc 32.9 g/dL (30-55); Mean Corpuscular Hemoglobin 30.5 pg (27-33); Mean Corpuscular Volume 92.8 fl (82-101); Mean Platelet Volume 10.4 fL (7.4-10.4); Monocytes # 0.5 10^3/uL (0.2-0.9); Neutrophils # 3.35 10^3/uL (1.8-7.7); Nucleated Red Blood Cells % 0 %; Platelet Count 193 10^3/cmm (157-399); Red Blood Count 4.42 10^6/uL (3.85-5.65); Red Cell Distribution Width 13.6 % (12.1-15.1); White Blood Count 5.78 10^3/uL (3.29-11.43)
[2024-05-23 12:23] VITALS: BP 158/65; PULSE 67; RESP 16; TEMP 36.4; O2SAT 97
== END 2024-05-27 23:59 | disposition home or self-care (01) ==
PROVIDERS: Nurse Practitioner Family; PCP Family Medicine; Visit Provider Internal Medicine
DX: E83.110 Hereditary hemochromatosis (principal); Z53.9 Procedure and treatment not carried out, unspecified reason; Z79.899 Other long term (current) drug therapy
CPT/HCPCS: 36415; 80053; 82728; 83540; 83550; 85025; 99195

== ENCOUNTER 2024-06-17 09:17 | Outpatient (CLI) | payer MEDICARE, OTHER, SELFPAY ==
[2024-06-17 09:44] VITALS: BMI 38.3
--- NOTE | 2024-06-17 09:46 | ECG_ITS ---
[facility]17 Pat Name: Andreas Castle Department: Room: Gender: Male Insurance Plan Specialist: : 1940 Requested By: Amelia Campos Order Number: [id number] Francisca MD: VIRGINIA LÓPEZ Interpretive Statements Lung unchanged pre/post procedure; Intraprocedure shortess of breath; Symptoms resoled by discharge NOTE: Please note that this is the electrocardiogram portion of the Lexiscan/Sestamibi stress test. The perfusion scan will be documented separately. DATA: Baseline heart rate was 58 beats per minute. Baseline blood pressure was 146/72 millimeters of mercury. Target heart rate was 138. Maximum heart rate achieved was 99. which was 71% of the predicted target heart rate. Maximum blood pressure was 149/77 millimeters of mercury. The reason for ending the test was completion of the protocol. The patient did not experience any symptoms. ELECTROCARDIOGRAM: BASELINE: Sinus bradycardia. Normal axis. Otherwise, no ST-T changes suggestive of ischemia noted. No arrhythmia noted. EXERCISE: After Lexiscan injection, no ST-T changes suggestive of ischemic noted. No arrhythmia noted. CONCLUSION: Please note due to baseline abnormality of the EKG specificity and sensitivity of the EKG portion of LexiScan MIBI stress test will be low 1. EKG not suggestive of ischemia 2. Lexiscan injection unremarkable. 3. Perfusion scan will be documented separately. Electronically Signed On 07-01-2024 22:09:29 [employer] by VIRGINIA LÓPEZ [email or web address]
--- NOTE | 2024-06-17 09:46 | NMCV_ITS ---
NM arianne perf SPECT r/s* [id number] Andreas Castle Age: 83 Gender: M : 1940 Exam Date: 06/17/2024 10:22 Ordering Phys: Amelia Salguero MD Technologist: CHEL Parmar Exam Location: [facility] Indications: cp STRESS TEST Please see separate stress test report in [facility] for full findings IMAGE PROTOCOL Rest/Stress 1 Lexiscan Day Radiopharmaceutical Dose (mCi) Administration Site Administered by Rest: Tc-99m 11 IV CHEL Parmar Sestamibi Stress:Tc-99m 32.6 IV CHEL Fuller Sestamibi Rest: 17-Jun-2024 60 Discovery 630 Stress: 17-Jun-2024 30 Discovery 630 0.4mg Lexiscan. Images obtained in supine and prone position. SPECT RESULTS Technical Quality: Good Raw Data Analysis: Normal Image Corrections: No attenuation or motion correction applied Summed Stress Score: 1 Summed Rest Score: 0 Summed Difference Score: 1 PERFUSION FINDINGS Large area of fixed perfusion defect noted in basal to distal inferior inferoseptal and inferolateral wall suggestive of old myocardial infarction versus scarring. 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 EKG segment will be documented separately. Kaelyn Bruce MD (Electronically Signed) Final Date: 17 June 2024 18:21 S
[2024-06-17] MEDS: regadenoson 0.4 Mg/5 ml Syringe IVP (11:12)
[2024-06-17 11:24] VITALS: BP 134/66; PULSE 66
== END 2024-06-17 09:18 | disposition home or self-care (01) ==
LOC: CDL 09:18
PROVIDERS: PCP Family Medicine; Visit Provider Family Medicine
DX: G45.9 Transient cerebral ischemic attack, unspecified (principal); R93.1 Abnormal findings on diagnostic imaging of heart and coronary circulation
CPT/HCPCS: 36415; 78452; 93017; 96374; A9500; J2785

== ENCOUNTER → 2024-06-18 11:11 | Outpatient (BNVA) | payer MEDICARE, OTHER, SELFPAY | PROVIDERS: PCP Family Medicine; Visit Provider Nurse Practitioner Family | DX: I25.118 Atherosclerotic heart disease of native coronary artery with other forms of angina pectoris (principal); R94.39 Abnormal result of other cardiovascular function study; I11.0 Hypertensive heart disease with heart failure; I50.32 Chronic diastolic (congestive) heart failure; E03.9 Hypothyroidism, unspecified; M79.89 Other specified soft tissue disorders | CPT/HCPCS: 93005; 99214 ==

== ENCOUNTER 2024-06-19 12:59 | Oncology outpatient (recurring) (ONCR) | payer MEDICARE, OTHER, SELFPAY ==
[2024-06-19 13:59] LABS: Basophils % 0.4 %; Eosinophils # 0.1 10^3/uL (0.0-0.8); Eosinophils % 1.6 %; Hematocrit 41.3 % (37-53); Lymphocytes % 17.4 %; Mean Corpuscular HGB Conc 33.2 g/dL (30-55); Mean Corpuscular Hemoglobin 30.9 pg (27-33); Mean Platelet Volume 9.5 fL (7.4-10.4); Monocytes # 0.4 10^3/uL (0.2-0.9); Monocytes % 7.2 %; Neutrophils # 4.05 10^3/uL (1.8-7.7); Neutrophils % 73.2 %; Nucleated Red Blood Cells % 0 %; Platelet Count 198 10^3/cmm (157-399); Red Blood Count 4.44 10^6/uL (3.85-5.65); Red Cell Distribution Width 14.4 % (12.1-15.1); White Blood Count 5.53 10^3/uL (3.29-11.43)
[2024-06-19 14:17] LABS: Alanine Aminotransferase 11 U/L (0-41); Alkaline Phosphatase 55 U/L (40-130); Anion Gap 14.9 (5-19); Aspartate Amino Transferase 11 U/L (0-40); Blood Urea Nitrogen 15 mg/dL (8-23); Calcium 8.7 mg/dL (8.5-10.5); Carbon Dioxide 26 mmol/L (22-29); Chloride 102 mmol/L (98-107); Ferritin 242 ng/mL (30-400); Globulin 3.1 g/dL (1.3-4.6); Glucose 123 mg/dL (65-115); Iron 51 ug/dL (59-158); Osmolality Calculated 290 mOsm/kg (285-295); Percent Saturation 22.2 % (20-50); Potassium 3.9 mmol/L (3.5-5.1); Sodium 139 mmol/L (136-145); Total Bilirubin 1.1 mg/dL (0.15-1.2); Total Iron Binding Capacity 229 mcg/dl; Total Protein 7.1 g/dL (6.6-8.7); Unsaturated Iron Binding 178 ug/dL (112-347)
[2024-06-19 14:56] VITALS: BP 138/80; PULSE 74; RESP 17; TEMP 36.7; O2SAT 95
== END 2024-06-27 23:59 | disposition home or self-care (01) ==
PROVIDERS: Nurse Practitioner Family; PCP Family Medicine; Visit Provider Internal Medicine
DX: E83.110 Hereditary hemochromatosis (principal); Z79.899 Other long term (current) drug therapy
CPT/HCPCS: 36415; 80053; 82728; 83540; 83550; 85025; 99195

== ENCOUNTER 2024-06-20 09:27 | Outpatient (CLI) | payer MEDICARE, OTHER, SELFPAY ==
--- NOTE | 2024-06-20 09:33 | USCV_ITS ---
Andreas Castle Age: 83 Gender: M : 1940 Exam Date: 06/20/2024 09:58 Ordering Phys: Amelia Salguero MD Technologist: Natanael Coronel [place] [facility] [place]: brain tia Risk Factors: Previous Vascular Surgery: Right Brachial BP: / Left Brachial BP: / Right Left Velocity (cm/s) Spectral Plaque Velocity (cm/s) Spectral Plaque Syst/Diast Broadening Syst/Diast Broadening 109.40/17.60 Prox CCA 135.90/ 29.80 97.70/ 17.60 Mid CCA 140.00/ 27.80 71.20/ 16.20 Distal CCA 117.50/ 23.70 75.50/ 28.10 Prox ICA 129.70/ 13.50 89.00/ 29.80 Mid ICA 82.80 / 23.70 93.10/ 25.70 Distal ICA 87.30 / 34.90 99.90 ECA 129.70 1.30 ICA/CCA 1.10 Antegrade Vertebral Antegrade 78.80/ 21.60 cm/s 48.40/ 17.60 cm/s Tri Subclavian Tri 111.4 93.90 0 FINDINGS Comparison: none available. Waveforms are mildly turbulent. No stenosis. Mild carotid atherosclerosis. Antegrade vertebral artery. CONCLUSIONS Bilateral ICA stenosis less than 50%. Dr. Anastasia Mathis DO (Electronically Signed) Final Date: 20 June 2024 11:13 S
== END 2024-06-20 09:28 | disposition home or self-care (01) ==
LOC: RAD 09:29
PROVIDERS: PCP Family Medicine; Visit Provider Family Medicine
DX: I65.23 Occlusion and stenosis of bilateral carotid arteries (principal)
CPT/HCPCS: 93880

== ENCOUNTER → 2024-07-07 10:10 | Outpatient (BNVA) | payer MEDICARE, OTHER, SELFPAY | PROVIDERS: PCP Family Medicine; Visit Provider Internal Medicine Cardiovascular Disease | DX: I47.20 Ventricular tachycardia, unspecified (principal); I47.10 Supraventricular tachycardia, unspecified; I49.1 Atrial premature depolarization; I49.3 Ventricular premature depolarization | CPT/HCPCS: 93246 ==

== ENCOUNTER 2024-07-24 11:59 | Oncology outpatient (recurring) (ONCR) | payer MEDICARE, OTHER, SELFPAY ==
--- NOTE | 2024-07-24 12:12 | USCV_ITS ---
Andreas Castle Age: 83 Gender: M : 1940 Exam Date: 07/24/2024 12:40 Ordering Phys: Mikael Sampson MD Technologist: Exam [place] [facility] [place]ication: cva BP: 123 / 74 HR: 70 Rhythm: Sinus Technical Quality: Adequate MEASUREMENTS (Male / Female) Normal Values 2D ECHO LV Diastolic Diameter PLAX 4.9 cm 4.2 - 5.9 / 3.9 - 5.3 cm IVS Diastolic Thickness 1.3 cm 0.6 - 1.0 / 0.6 - 0.9 cm IVS Systolic Thickness 1.5 cm LVPW Diastolic Thickness 1.2 cm 0.6 - 1.0 / 0.6 - 0.9 cm LVPW Systolic Thickness 1.6 cm LVOT Diameter 1.9 cm LV Ejection Fraction 2D Teich 63.8 % LV Ejection Fraction MOD 4C 55.8 % LV Ejection Fraction MOD 2C 69.0 % LV Ejection Fraction 2C AL 69.1 % LA Diameter 3.3 cm RA Systolic Volume 4C AL 36.3 ml RA Systolic Volume 4C MOD 35.4 ml Aorta at Sinotubular Diameter 3.3 cm IVC Diameter 2.4 cm M-MODE LA Ao Ratio MM 1.1 AV Cusp Separation MM 2.2 cm DOPPLER AV Peak Velocity 159.0 cm/s LVOT Peak Velocity 118.0 cm/s AV Area Cont Eq vti 2.1 cm squared AV Area Cont Eq pk 2.1 cm squared MV Peak Velocity 143.0 cm/s TV Peak Velocity 198.0 cm/s TR Peak Velocity 226.0 cm/s TR Peak Gradient 20.4 mmHg TV Peak E Velocity 81.0 cm/s PV Peak Velocity 138.0 cm/s FINDINGS Left Ventricle Normal left ventricular size, systolic function and wall thickness, with no regional wall motion abnormalities. Left ventricular ejection fraction is estimated at 60 %. Grade II/IV diastolic dysfunction, moderately elevated filling pressures. Right Ventricle The right ventricle is normal in size and function. Right Atrium The right atrium is normal in size. Left Atrium The left atrium is normal in size. Mitral Valve Structurally normal mitral valve without significant stenosis or prolapse. There is no mitral regurgitation. Aortic Valve Mild aortic valve calcification. Mild aortic valve stenosis, mean gradient 4.5 mmHg, VINICIUS 2.1 cm squared. Mild aortic valve regurgitation. Tricuspid Valve Structurally normal tricuspid valve without significant stenosis or regurgitation. Pulmonary artery systolic pressure is normal. Pulmonic Valve Structurally normal pulmonic valve without significant stenosis. There is no pulmonic regurgitation. Pericardium Normal pericardium without effusion. Aorta Normal ascending aorta dimension. IVC The inferior vena cava appears normal. CONCLUSIONS Normal left ventricular size, systolic function and wall thickness, with no regional wall motion abnormalities. Left ventricular ejection fraction is estimated at 60 %. Grade II/IV diastolic dysfunction, moderately elevated filling pressures. Mild aortic valve calcification. Mild aortic valve stenosis, mean gradient 4.5 mmHg, VINICIUS 2.1 cm squared. Mild aortic valve regurgitation. There is no pericardial effusion. Right atrial pressure is around 5 mm of mercury. Kaelyn Bruce MD (Electronically Signed) Final Date: 28 July 2024 19:51 S
== END 2024-07-25 23:59 | disposition home or self-care (01) ==
LOC: RAD 12:00 → ONCMED 07-28 10:02
PROVIDERS: PCP Family Medicine; Visit Provider Internal Medicine
DX: I50.32 Chronic diastolic (congestive) heart failure (principal); G45.9 Transient cerebral ischemic attack, unspecified
CPT/HCPCS: C8929

== ENCOUNTER → 2024-07-25 09:48 | Outpatient (BNVA) | payer MEDICARE, OTHER, SELFPAY | PROVIDERS: PCP Family Medicine; Visit Provider Specialist | DX: M75.101 Unspecified rotator cuff tear or rupture of right shoulder, not specified as traumatic (principal); Z71.89 Other specified counseling | CPT/HCPCS: 20610; J1100; J2795; J3301 ==

== ENCOUNTER 2024-07-31 08:19 | Oncology outpatient (recurring) (ONCR) | payer MEDICARE, OTHER, SELFPAY ==
[2024-07-31 08:42] VITALS: BP 181/81; PULSE 53; RESP 16; TEMP 36.6; O2SAT 99
[2024-07-31 09:12] LABS: Basophils % 0.1 %; Eosinophils # 0.2 10^3/uL (0.0-0.8); Eosinophils % 2.2 %; Lymphocytes # 1.3 10^3/uL (0.8-4.8); Lymphocytes % 13.4 %; Mean Corpuscular HGB Conc 33.8 g/dL (30-55); Mean Corpuscular Volume 94.8 fl (82-101); Mean Platelet Volume 10.3 fL (7.4-10.4); Monocytes # 0.8 10^3/uL (0.2-0.9); Monocytes % 7.6 %; Neutrophils # 7.64 10^3/uL (1.8-7.7); Neutrophils % 76.4 %; Nucleated Red Blood Cells % 0 %; Platelet Count 225 10^3/cmm (157-399); Red Blood Count 4.22 10^6/uL (3.85-5.65); Red Cell Distribution Width 13.6 % (12.1-15.1)
[2024-07-31 09:28] LABS: Alanine Aminotransferase 15 U/L (0-41); Albumin Level 4.2 g/dL (3.5-5.2); Alkaline Phosphatase 65 U/L (40-130); Aspartate Amino Transferase 13 U/L (0-40); Blood Urea Nitrogen 21 mg/dL (8-23); Calcium 8.6 mg/dL (8.5-10.5); Carbon Dioxide 29 mmol/L (22-29); Chloride 103 mmol/L (98-107); Ferritin 108 ng/mL (30-400); Globulin 2.6 g/dL (1.3-4.6); Glucose 121 mg/dL (65-115); Iron 54 ug/dL (59-158); Osmolality Calculated 296 mOsm/kg (285-295); Sodium 141 mmol/L (136-145); Total Bilirubin 0.9 mg/dL (0.15-1.2); Total Iron Binding Capacity 256 mcg/dl; Total Protein 6.8 g/dL (6.6-8.7); Unsaturated Iron Binding 202 ug/dL (112-347)
[2024-07-31 09:30] LABS: Anion Gap 13.4 (5-19); Potassium 4.4 mmol/L (3.5-5.1)
[2024-07-31 10:12] LABS: Chol HDL Ratio 2.29 mg/dL (1.0-5.00); Cholesterol 94 mg/dL (0-200); HDL Cholesterol 41 mg/dL (60-100); LDL Cholesterol Calculated 36 mg/dL (50-129); LDL HDL Ratio 0.88 RATIO (0.00-3.22); Triglycerides 83 mg/dL (0-150)
[2024-07-31 10:17] LABS: Estmated Average Glucose 105; Hemoglobin A1C 5.3 % (4.0-6.0)
== END 2024-08-25 23:59 | disposition home or self-care (01) ==
PROVIDERS: PCP Family Medicine; Visit Provider Internal Medicine
DX: Z53.9 Procedure and treatment not carried out, unspecified reason; E83.110 Hereditary hemochromatosis; I50.32 Chronic diastolic (congestive) heart failure; R19.8 Other specified symptoms and signs involving the digestive system and abdomen; Z85.46 Personal history of malignant neoplasm of prostate; Z79.899 Other long term (current) drug therapy
CPT/HCPCS: 80053; 80061; 82728; 83036; 83540; 83550; 84443; 85025; 99214

== ENCOUNTER 2024-09-01 20:00 | Outpatient (CLI) | payer MEDICARE, OTHER, SELFPAY | END 2024-09-01 20:01 | disposition home or self-care (01) | LOC: SLEEP 23:45 | PROVIDERS: PCP Family Medicine; Visit Provider Internal Medicine | DX: G47.33 Obstructive sleep apnea (adult) (pediatric) (principal) | CPT/HCPCS: 95811 ==

== ENCOUNTER → 2024-09-17 10:06 | Outpatient (BNVA) | payer MEDICARE, OTHER, SELFPAY | PROVIDERS: PCP Family Medicine; Visit Provider Nurse Practitioner Family | DX: I11.0 Hypertensive heart disease with heart failure (principal); I50.33 Acute on chronic diastolic (congestive) heart failure; I25.10 Atherosclerotic heart disease of native coronary artery without angina pectoris; E03.9 Hypothyroidism, unspecified; Z79.01 Long term (current) use of anticoagulants; Z79.82 Long term (current) use of aspirin | CPT/HCPCS: 99213 ==

== ENCOUNTER → 2024-10-24 09:12 | Outpatient (BNVA) | payer MEDICARE, OTHER, SELFPAY | PROVIDERS: PCP Family Medicine; Visit Provider Specialist | DX: M75.101 Unspecified rotator cuff tear or rupture of right shoulder, not specified as traumatic (principal); M12.811 Other specific arthropathies, not elsewhere classified, right shoulder | CPT/HCPCS: 20610; J1100; J2795; J3301; J9999 ==

== ENCOUNTER 2024-10-30 12:18 | Oncology outpatient (recurring) (ONCR) | payer MEDICARE, OTHER, SELFPAY ==
[2024-10-30 12:55] LABS: Basophils % 0.4 %; Eosinophils # 0.2 10^3/uL (0.0-0.8); Eosinophils % 2.9 %; Hematocrit 38.3 % (37-53); Lymphocytes # 1.7 10^3/uL (0.8-4.8); Lymphocytes % 22.7 %; Mean Corpuscular HGB Conc 34.2 g/dL (30-55); Mean Corpuscular Hemoglobin 31.8 pg (27-33); Mean Platelet Volume 10.3 fL (7.4-10.4); Monocytes # 0.4 10^3/uL (0.2-0.9); Monocytes % 5.3 %; Neutrophils # 5.13 10^3/uL (1.8-7.7); Nucleated Red Blood Cells % 0 %; Platelet Count 226 10^3/cmm (157-399); Red Blood Count 4.12 10^6/uL (3.85-5.65); Red Cell Distribution Width 14.1 % (12.1-15.1); White Blood Count 7.54 10^3/uL (3.29-11.43)
[2024-10-30 13:24] LABS: Alanine Aminotransferase 12 U/L (0-41); Alkaline Phosphatase 58 U/L (40-130); Anion Gap 18.8 (5-19); Aspartate Amino Transferase 10 U/L (0-40); Blood Urea Nitrogen 21 mg/dL (8-23); Calcium 8.6 mg/dL (8.5-10.5); Carbon Dioxide 21 mmol/L (22-29); Chloride 106 mmol/L (98-107); Ferritin 112 ng/mL (30-400); Globulin 2.6 g/dL (1.3-4.6); Glucose 182 mg/dL (65-115); Iron 93 ug/dL (59-158); Osmolality Calculated 302 mOsm/kg (285-295); Percent Saturation 41.5 % (20-50); Potassium 3.8 mmol/L (3.5-5.1); Sodium 142 mmol/L (136-145); Total Bilirubin 0.4 mg/dL (0.15-1.2); Total Iron Binding Capacity 224 mcg/dl; Total Protein 6.6 g/dL (6.6-8.7); Unsaturated Iron Binding 131 ug/dL (112-347)
[2024-10-30 13:28] LABS: Prostate Specific Antigen < 0.014 ng/mL (0-4)
== END 2024-11-24 23:59 | disposition home or self-care (01) ==
PROVIDERS: Nurse Practitioner; PCP Family Medicine; Visit Provider Internal Medicine
DX: E83.110 Hereditary hemochromatosis (principal); Z85.46 Personal history of malignant neoplasm of prostate; G47.33 Obstructive sleep apnea (adult) (pediatric); Z99.89 Dependence on other enabling machines and devices
CPT/HCPCS: 36415; 80053; 82728; 83540; 83550; 84153; 85025; 99213

== ENCOUNTER 2025-01-29 09:34 | Oncology outpatient (recurring) (ONCR) | payer MEDICARE, OTHER, SELFPAY ==
[2025-01-29 10:53] LABS: Hematocrit 41.1 % (37-53); Hemoglobin 13.70 g/dL (11.27-16.99); Mean Corpuscular HGB Conc 33.3 g/dL (30-55); Mean Corpuscular Hemoglobin 32.5 pg (27-33); Mean Corpuscular Volume 97.4 fl (82-101); Nucleated Red Blood Cells % 0 %; Platelet Count 212 10^3/cmm (157-399); Red Blood Count 4.22 10^6/uL (3.85-5.65); White Blood Count 5.37 10^3/uL (3.29-11.43)
[2025-01-29 11:47] LABS: Alanine Aminotransferase 12 U/L (0-41); Albumin Level 4.3 g/dL (3.5-5.2); Alkaline Phosphatase 59 U/L (40-130); Anion Gap 15.3 (5-19); Aspartate Amino Transferase 13 U/L (0-40); Blood Urea Nitrogen 17 mg/dL (8-23); Calcium 9.3 mg/dL (8.5-10.5); Carbon Dioxide 25 mmol/L (22-29); Chloride 103 mmol/L (98-107); Creatinine Clr Calc Pharmacy 66.5887; Ferritin 194 ng/mL (30-400); Globulin 3.0 g/dL (1.3-4.6); Glucose 106 mg/dL (65-115); Iron 123 ug/dL (59-158); Osmolality Calculated 290 mOsm/kg (285-295); Potassium 4.3 mmol/L (3.5-5.1); Sodium 139 mmol/L (136-145); Total Iron Binding Capacity 246 mcg/dl; Total Protein 7.3 g/dL (6.6-8.7); Unsaturated Iron Binding 123 ug/dL (112-347)
== END 2025-02-24 23:59 | disposition home or self-care (01) ==
PROVIDERS: Internal Medicine; PCP Family Medicine; Visit Provider Nurse Practitioner
DX: E83.110 Hereditary hemochromatosis (principal); G47.33 Obstructive sleep apnea (adult) (pediatric); E66.9 Obesity, unspecified; Z68.38 Body mass index [BMI] 38.0-38.9, adult; Z85.46 Personal history of malignant neoplasm of prostate
CPT/HCPCS: 36415; 80053; 82728; 82746; 83540; 83550; 83615; 85025; 86140; 99195; 99214

== ENCOUNTER → 2025-03-19 14:55 | Outpatient (BNVA) | payer MEDICARE, OTHER, SELFPAY | PROVIDERS: PCP Family Medicine; Visit Provider Internal Medicine Cardiovascular Disease | DX: I25.118 Atherosclerotic heart disease of native coronary artery with other forms of angina pectoris (principal); I11.0 Hypertensive heart disease with heart failure; I50.32 Chronic diastolic (congestive) heart failure; E78.00 Pure hypercholesterolemia, unspecified; E03.9 Hypothyroidism, unspecified; Z98.61 Coronary angioplasty status; R07.9 Chest pain, unspecified | CPT/HCPCS: 36415; 80048; 83880; 93005; 99214 ==

== ENCOUNTER 2025-03-27 07:41 | Outpatient (CLI) | payer MEDICARE, OTHER, SELFPAY ==
--- NOTE | 2025-03-27 | ECG_ITS ---
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 Interpretive Statements Procedure: A total of 0.4 mg of Lexiscan was infused over 20 seconds. The stress phase was continued for a total of 5 minutes. Sestamibi was injected 20 seconds after the Lexiscan infusion. Findings:The patient's resting blood pressure was 158/71 mmHg with a heart rate of 65 bpm. After Lexiscan injection the patient's blood pressure gradually decreased to 140/70 and the heart rate gradually increased to 88 bpm. The patient's resting EKG showed normal sinus rhythm with 1 premature ventricular contraction and no ST-T wave abnormalities. There were occasional PVCs during the stress test and in recovery. There were no ST or T wave changes consistent with ischemia. Conclusion: 1. Normal EKG response to Lexiscan infusion 2. No Lexiscan induced chest pain 3. Normal blood pressure and heart rate response. 4. Nuclear myocardial perfusion scan pending; see separate report. 5. Occasional premature ventricular contractions at rest and during the stress test. Electronically Signed On 03-27-2025 16:27:23 CDT by Angelo Rolle M.D. [email or web address]
--- NOTE | 2025-03-27 07:50 | NMCV_ITS ---
NM arianne perf SPECT r/s* [id number] [address] Age: 84 Gender: M : 1940 Exam Date: 03/27/2025 08:36 Ordering Phys: Adore Murray MD ([email or web address]) Technologist: CHEL Parmar Exam Location: [facility] Indications: cp STRESS TEST [facility] IMAGE PROTOCOL Rest/Stress 1 Lexiscan Day Radiopharmaceutical Dose (mCi) Administration Site Administered by Rest: Tc-99m 10.4 IV - right CHEL Parmar Sestamibi antecubital Stress:Tc-99m 33 IV CHEL Fuller Sestamibi Rest: 27-Mar-2025 60 Discovery 630 Stress: 27-Mar-2025 30 Discovery 630 0.4mg Lexiscan. Images obtained in supine and prone position. SPECT RESULTS Technical Quality: Good Raw Data Analysis: Normal Image Corrections: No attenuation or motion correction applied Summed Stress Score: 4 Summed Rest Score: 0 Summed Difference Score: 4 PERFUSION FINDINGS There is a medium area of moderately reduced tracer counts in the apical, mid and basal inferiorwall segments on the stress images that reverses to normal on the resting images consistent with reversible ischemia. On the raw images, there is tracer counts in the GI tract directly adjacent to the inferior wall of the heart that can lead to artifact in the inferior wall of the heart. FUNCTIONAL RESULTS (calculated via Gated SPECT) Stress Image LV EF (%): 71 Stress EDV (mL):105 TID: 1.03 Stress ESV (mL):30 FUNCTIONAL FINDINGS: There is normal left ventricular systolic function. IMPRESSIONS 1. There is a medium area of moderate ischemia in the inferior wall. 2. Normal left ventricular systolic function, ejection fraction 71%. Angelo Rolle MD, FACC (Electronically Signed) Final Date: 27 March 2025 15:59 S
[2025-03-27 07:58] VITALS: BMI 39.1
[2025-03-27 09:23] VITALS: BP 140/70; PULSE 82
== END 2025-03-27 07:42 | disposition home or self-care (01) ==
LOC: CDL 07:46
PROVIDERS: PCP Family Medicine; Visit Provider Internal Medicine Cardiovascular Disease
DX: R07.9 Chest pain, unspecified (principal); R93.1 Abnormal findings on diagnostic imaging of heart and coronary circulation; I25.89 Other forms of chronic ischemic heart disease
CPT/HCPCS: 36415; 78452; 93017; 96374; A9500; J2785

== ENCOUNTER → 2025-04-13 13:24 | Outpatient (BNVA) | payer MEDICARE, OTHER, SELFPAY | PROVIDERS: PCP Family Medicine; Visit Provider Internal Medicine Cardiovascular Disease | DX: I25.118 Atherosclerotic heart disease of native coronary artery with other forms of angina pectoris (principal); I11.0 Hypertensive heart disease with heart failure; I50.30 Unspecified diastolic (congestive) heart failure; E78.00 Pure hypercholesterolemia, unspecified; E03.9 Hypothyroidism, unspecified; R94.39 Abnormal result of other cardiovascular function study; R06.02 Shortness of breath; Z79.01 Long term (current) use of anticoagulants; I48.91 Unspecified atrial fibrillation | CPT/HCPCS: 80048; 85025; 85610; 86850; 86900; 99214 ==

== ENCOUNTER 2025-04-20 05:29 | Outpatient (CLI) | payer MEDICARE, OTHER, SELFPAY ==
[2025-04-20] VITALS (67 sets, daily range): BP systolic 113–172; BP diastolic 59–106; PULSE 52–86; RESP 13–28; TEMP 36.2–37.2; O2SAT 91–98; BMI 39.3
--- NOTE | 2025-04-20 06:00 | XACV_ITS ---
Exam Room: 2 Ht: 170 cm Wt: 114 kg BSA: 2.37 m2 Gender: Male : 1940 Performing Physician(s): Dr. Murray Any Known Allergies: Morphine Exam Priority: Routine Procedure(s): Procedure Description: Diagnostic procedure Trevor GARNER; Diagnostic Cath Status: Urgent Diagnostic Findings * Left main coronary artery: Mild 20% stenosis of distal segment. * LAD: Medium size vessel. Previously placed stent in the midsegment is patent. Minor irregularities in the proximal and distal segment. * Lcx: Circumflex is 100% occluded after medium size high obtuse marginal branch. The obtuse marginal branch has mild 30% ostial stenosis. * RCA: Large dominant vessel calcified 40 to 50% diffuse disease in the mid vessel. RPL V, good-sized vessel with 80 to 90% stenosis in the proximal segment. PDA mild diffuse disease with a focal 50% stenosis in the midsegment. * Conclusion: Patent previously placed stent in the mid LAD. Significant disease in proximal good size PLV branch, likely culprit for current clinical scenario. * Recommendations: Angioplasty of proximal PLV. PCI Status: Urgent PCI Indication: NSTE - ACS Conclusions 1. Successful angioplasty of 90% stenosis of proximal segment of medium-large size PLV branch was performed with JEN (2.5 x 22). Stent was deployed at 14 sinan. Post angiography excellent angiographic result. No complication related to the procedure. 2. 84-year-old white male with a history of atherosclerotic heart disease, PCI of the mid LAD approximately a year ago presenting with unstable anginal symptoms. Cardiac catheterization revealed high-grade lesion of the proximal segment of the PLV branch of the right coronary artery. 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 Mild to moderate diffuse disease in the other vessels. Patent stented segments. LVEDP of 29 mmHg. 3. I reviewed and discussed the cardiac catheterization data with Dr. Brito. It was thought to be appropriate to consider PCI of the PLV lesion. Dr. Brito concurred with this plan and took over further management this patient at this point. Recommendations * Post PCI management overnight. Dual antiplatelets as per protocol. * Dual antiplatelets, statin and other cardiac meds as per protocol. Interventional RX Recommendation: PCI w/o planned CABG Diagnostic RX Recommendation: PCI w/o planned CABG Anticoagulation: Heparin LV EDP: 29 mmHg Left Ventriculography Findings: * The LV gram was not performed because of the concern of the dye overload. LVEDP was 29 mmHg. Pressures Phase:Rest AO : 97 / 49 ( 64 ) @ 7:38:00 AM 81 / 67 ( 66 ) @ 7:41:00 AM 98 / 66 ( 82 ) @ 7:54:00 AM 137 / 61 ( 96 ) @ 8:11:00 AM 137 / 55 ( 91 ) @ 8:11:00 AM LV : 134 / 8 / 29 @ 8:11:00 AM 129 / 8 / 29 @ 8:11:00 AM Valves Phase:DefaultPhase AV : 0.0 @ 9:29:57 AM 0.0 @ 9:29:57 AM AV Mean Gradient: 0.0 @ 9:29:57 AM Clinical Evaluation EBL: 5mL-10mL Procedural Details Procedure Consent Obtained. Pre-Procedure Time Out. Identified patient by full name and date of as verbalized by the patient/guarantor. Does the consent match the physician's order: Yes. Accurate & Complete Informed Consent: Yes. Inpatient/Outpatient History & Physical on Chart: Yes. If H&P is completed, is and addenduem needed: No; If yes, is the addendum complete: N/A. Visualize and Verify Site with Patient/Guarantor: N/A. Relevant Radiology Images available: Yes. Pre-op teaching completed and patient verbalized understanding. The risks, benefits, and alternatives of sedation and/or procedure were discussed by physician. The patient agrees to continue. Procedure started. Physician arrived. Current Diagnosis : Chest Pain. [facility] Clinical Fraility Score: 3: Managing Well. 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 Chest Pain Symptom Assessment: Typical Angina Symptoms. Correct patient, site and procedure confirmed by cath team. Current diagnosis: Chest Pain. PERRLA. Strong, equal hand obstetrical anesthesiologist bilaterally. Lungs clear x 5 lobes. IV Site on Arrival: 20 gauge in the right forearm. IV Fluids: 0.9% NaCl at KVO. 0 mL infused prior to rn cardiac cath. Pre Procedural Pulses: bilateral dorsalis pedis was Doppled. Pre Procedural Pulses: bilateral posterior tibial was Doppled. Pre Procedural Pulses: bilateral radial was 3+. Oxygen started at 2liters/min via nasal canula. right groin was prepped with chloroprep then draped in the usual sterile fashion. right radial was prepped with chloroprep then draped in the usual sterile fashion. Baseline sample Acquired. HR: 60 BPM. Physician scrubbed in. Immediate Pre-Procedure Time Out. Correct Patient: Yes; Correct Procedure: Yes; Correct Site: Yes; Correct Patient Position: Yes; Correct Supplies: Yes; Dried Flammable Prep: Yes; Blood Products Available: N/A;. Lidocaine 1% infiltrated to the right radial. Arterial access obtained. A 5 cambodian William catheter in over wire. Multiple views taken of left coronary artery. Catheter redirected to the RCA. Catheter removed over the exchange wire. A 5 cambodian JR4 catheter in over wire. Catheter removed over the exchange wire. A 5 cambodian 3DRC catheter in over wire. Multiple views taken of right coronary artery. Catheter removed over the exchange wire. A 5 cambodian AR MOD catheter in over wire. Catheter removed over the exchange wire. A 5 cambodian AL1 catheter in over wire. Multiple views taken of right coronary artery. Dr. Brito called to review films. Catheter removed over the exchange wire. A 5 cambodian Angled Pig catheter in over wire. Dr. Brito arrived. EDP Sample taken: LV 134/8,29; HR: 57 BPM; SpO2: 98%. Pullback taken: LV 129/8,29; AO 137/61(96); Mean: 0mmHg, Peak to Peak: 0mmHg, SEP: 5sec/min; HR: 58 BPM; SpO2: 96%. Catheter removed over the exchange wire. Dr. Murray scrubbed out. Dr. Brito scrubbed in. 6 cambodian JR 4 guide catheter was inserted over the wire. Guide catheter out. A new 6 cambodian JR 4 guide catheter was inserted over the wire. Guide catheter out. A 5 cambodian AL1 catheter in over wire. 300cm Runthrough guidewire was advanced through the guide catheter to lesion in the PLV. Catheter out over the Runthrough wire. Wire out. 6 cambodian JR 4 guide catheter was inserted over the wire. 300cm Runthrough guidewire was advanced through the guide catheter to lesion in the PLV. Runthrough guidewire was advanced through the guide catheter to lesion in the PDA. Inflation number : 1 A AB MINI TREK 2.00X12 RX BALLOON was prepped and advanced across the R PAV , then inflated to 12 SINAN for 0:15 seconds. Inflation number: 2 The AB MINI TREK 2.00X12 RX BALLOON was reinflated across the R PAV, to 8 SINAN for 0:10 seconds. Balloon out. 2.5x22 Resolute Manjinder Stent inserted to lesion in the PLV. The short Runthrough wire out. Intact stent out. The short Runthrough wire inserted through the catheter and advanced to the PDA. Stent inserted to lesion in the PLV. The short Runthrough wire out. Inflation Number : 3 A MDT R MANJINDER 2.5X22 JEN -Lot Number# [id number] EXP: 02/17/2027 was prepped and advanced across the R PAV. The stent was deployed at 14 SINAN for 0:20 seconds. Stent balloon out over wire. Results checked. Wire out. Guide catheter out. Dr. Brito scrubbed out. A TR Band was successful obtaining hemostatsis at the Right Radial artery insertion site. Vital chart was stopped. Post Procedure: Pulses reassessed and unchanged. PERRLA. Strong, equal hand obstetrical anesthesiologist bilaterally. No VTE prophylaxis required. Medication's Wasted: Lidocaine 1% = 18 mL. Medication's Wasted: Nitro = 49.7 mcg. Total IV fluids: 300 mL. Post-op diagnosis: Stent to RPLV. Complications: None. Estimated blood loss: 5mL-10mL. Responsiveness - Normal response to verbal stimuli; alert and oriented, PERRLA. Airway - Unaffected, no intervention required; spontaneous ventilation. Circulation: W/N/L, pulses unchanged. Nausea/Vomiting: No. Procedure completed. Patient transferred by bed to 1st floor. Access Site Site: Right Radial artery Sheath Size: 6 Fr Hemostasis Method: TR Band Hemostasis Success: Successful Complication Findings: None. Procedure Medications Start: 7:19 AM Stop: 7:19 AM Medication: Versed Amount: 1 mg Route: I.V. Start: 7:19 AM Stop: 7:19 AM Medication: Fentanyl Amount: 50 mcg Route: I.V. Start: 7:25 AM Stop: 7:25 AM Medication: Versed Amount: 1 mg Route: I.V. Start: 7:35 AM Stop: 7:35 AM Medication: Nitrogylcerin Amount: 200 mcg Route: I.A. Start: 7:35 AM Stop: 7:35 AM Medication: Verapamil Amount: 5 mg Route: I.A. Start: 7:36 AM Stop: 7:36 AM Medication: 0.9% Saline Amount: 250 ml Route: I.V. bolus Start: 7:37 AM Stop: 7:37 AM Medication: Heparin Amount: 5000 units Route: I.V. Start: 7:39 AM Stop: 7:39 AM Medication: Versed Amount: 1 mg Route: I.V. Start: 7:59 AM Stop: 7:59 AM Medication: Fentanyl Amount: 25 mcg Route: I.V. Start: 8:16 AM Stop: 8:16 AM Medication: Versed Amount: 1 mg Route: I.V. Start: 8:22 AM Stop: 8:22 AM Medication: Fentanyl Amount: 25 mcg Route: I.V. Start: 8:23 AM Stop: 8:23 AM Medication: Heparin Amount: 7000 units Route: I.V. Start: 8:31 AM Stop: 8:31 AM Medication: Versed Amount: 1 mg Route: I.V. Start: 9:11 AM Stop: 9:11 AM Medication: Versed Amount: 1 mg Route: I.V. Start: 9:22 AM Stop: 9:22 AM Medication: Nitrogylcerin Amount: 100 mcg Route: I.A. Start: 9:26 AM Stop: 9:26 AM Medication: Lasix (furosemide) Amount: 20 mg Route: I.V. I, the attending physician, have reviewed and verified all procedure medications. Yes, all medications given per verbal order History/Risk Factors Hypertension: Yes Dyslipidemia: Yes Peripheral Arterial Disease (PAD): No Myocardial Infarction (NV): No Obesity: Yes Renal Disease: No Tobacco Use: Never Prior Interventions PCI: Yes CABG: No Valve Surgery: No Report Signatures Diagnostic Workflow Finalized by Dr Adore Murray MD [facility] on 04/20/2025 06:07 PM Interventional Workflow Finalized by Aidee Brito MD on 04/20/2025 01:31 PM
--- NOTE | 2025-04-20 07:11 | P.HPUD_ITS ---
Surgery/Procedure H&P Update DATE OF PROCEDURE: April 20, 2025 DATE H&P PERFORMED: 04/13/25 H&P UPDATE INFORMATION: I have reviewed H&P completed within last 30 days, I have examined patient prior to procedure, No changes to prior documentation and Changes to prior documentation as noted here PREOP DIAGNOSIS: ASHD PRIMARY INDICATION FOR PROCEDURE: accelerated angina/ previous PCI PLANNED PROCEDURE: Operation Date: 04/20/25 07:00 Proposed Procedures p Cardiac Catheterization - [facility] w/wo Coros(Left) - Adore Murray MD PATIENT REASSESSED PRIOR TO SEDATION, WITH NO CHANGE NOTED: Yes PHYSICAL EXAM: alert, oriented x 3, clear to auscultation bilaterally and regular rate & rhythm AIRWAY EVAL/ANESTHESIA PLAN: normal airway, see other exam findings, ASA III, Monitored Anesthesia, Local Anesthesia, Risks, benefits & alternatives of s edation and/or procedure discussed and Patient agrees to continue as planned
--- NOTE | 2025-04-20 14:03 | PC.NURSE ---
Patient requesting to wear home pants/shirt. They are loose fitting. Patient educated on possible need to remove clothing and clothing being cut off if needed. Verbal understanding. Patient is Right radial, no femoral.
[2025-04-21] VITALS: BP 133/65; PULSE 85; RESP 22; O2SAT 94
[2025-04-21 03:22] VITALS: BP 153/74; PULSE 77; RESP 16; TEMP 36.2; O2SAT 92
[2025-04-21 04:00] VITALS: BP 153/74; PULSE 64; RESP 18; O2SAT 97
--- NOTE | 2025-04-21 05:07 | PC.NURSE ---
Addendum entered by Nancy Pereyra RN 04/21/25 05:56: attempted to call X4 time Dr Murray to make aware of situation, unable to get hold of Dr Murray Original Note: patient refused morning medication stating he will take them later at home, patient did take plavix since it was a new prescription.
--- NOTE | 2025-04-21 12:38 | P.DS_ITS ---
Discharge Providers Date of Admission: April 20, 2025 Date of Discharge: April 21, 2025 Attending Provider at Admission: Dr. Murray Attending Provider at Discharge: Adore Murray MD Primary Care Provider: Uriah Hernandez MD Reason for Visit Reason for Visit: na Hospital Course Hospital Course This is an 84-year-old gentleman with a previous history of coronary disease who underwent cardiac catheterization after an abnormal nuclear stress test. Coronary angiogram revealed patent stent in the LAD however there was a significant 80 to 90% stenosis in the proximal segment of medium size PLV branch of RCA. Patient had a successful angioplasty of PLV with drug-eluting stent. No complication related to the procedure. He was observed overnight postprocedure. Continued on his regular medication including dual antiplatelets. The dose of statin was increased. He is doing clinically very well. Asymptomatic from cardiovascular point of view. He is being discharged home on his routine medication. The dose of statin has been increased to 40 mg of pravastatin. Physical Exam Narrative: Patient resting comfortably. He is not in respiratory distress. His vitals are stable. HENMT: OTHER: Normal Chest: OTHER: Normal chest exam. Resp: OTHER: Good air entry bilaterally. No added sounds. Cardio: OTHER: Normal 1st and 2nd heart sounds. No added sounds. GI: OTHER: Soft and nontender abdomen. Bowel sounds audible. Extremity: OTHER: Trace bilateral lower extremity edema. Distal pulses 1+ palpable bilaterally. Neuro: OTHER: Grossly intact and nonfocal. Skin: OTHER: Warm and dry. 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 Routine Exams 04/20/25 06:00 Completed Vitals Last Vital Signs Temp 97.1 F L 04/21/25 03:22 Pulse 64 04/21/25 04:00 Resp 18 04/21/25 04:00 BP 153/74 04/21/25 04:00 Pulse Ox 97 04/21/25 04:00 O2 Del Method Room Air 04/21/25 04:00 Discharge Plan Discharge Patient Disposition: Home Prescriptions: Continued aspirin 81 mg tablet,chewable 81 mg PO DAILY fluorouracil 5 % cream 1 applic topical BID primidone 50 mg tablet 25 mg PO BEDTIME probenecid 500 mg tablet 250 mg PO BID potassium chloride 10 mEq tablet extended release 1 tab PO DAILY pramipexole 1 mg tablet 1 mg PO DIRECTED clonidine HCl 0.1 mg tablet 0.1 mg PO QDAY Qty: 90 3RF furosemide 40 mg tablet 40 mg PO DAILY Qty: 90 3RF isosorbide mononitrate 120 mg tablet extended release 24 hr 120 mg PO DAILY 90 Days Qty: 90 3RF metoprolol tartrate 25 mg tablet 12.5 mg PO BID Qty: 90 3RF tamsulosin 0.4 mg capsule See Rx Instructions .ROUTE .COMPLEX Qty: 90 0RF Dose Instruction: TAKE 1 CAPSULE AT BEDTIME Rx Instructions: TAKE 1 CAPSULE AT BEDTIME nitroglycerin 0.4 mg tablet, sublingual 0.4 mg sublingual Q5M PRN (Reason: chest pain) 30 Days Qty: 30 3RF Rx Instructions: until response; do not exceed 3 doses per episode meclizine 25 mg tablet 25 mg PO QID PRN (Reason: Vertigo) Patient Comments: up to 4 times PRN clopidogrel 75 mg tablet 75 mg PO DAILY Rx Instructions: TAKE 1 TABLET DAILY Changed pravastatin 10 mg tablet 40 mg PO DAILY Qty: 30 3RF No Action irbesartan 300 mg tablet 300 mg PO DAILY Qty: 90 3RF Discharge Order = DC NOW: Discharge Order (Routine); Ordered 04/21/25 Ordered By: Aidee Brito Referrals: Uriah Hernandez MD [Primary Care Provider, Family Practice] - 04/28/25 11:00 am Dorothy Yanez FNP [Nurse Practitioner, Cardiology] - 05/12/25 2:00 pm Patient Instructions: Coronary Angioplasty (DC), How to Stop Smoking (DC), Post Angiogram Home Care Instructions Print Language: Citizen Of [place] Discharge Date/Time: 04/21/25 10:26 Discharge Attestations Time Spent in Discharge Care*: less than 30 min Quality Metrics Clinical Quality Measures [ No reported AMI, CVA or VTE this stay] Coding Level of Care Code 17415 Time Spent (min) 20
== END 2025-04-21 10:26 | disposition home or self-care (01) ==
LOC: CCL 05:31 → CSU 09:36
PROVIDERS: Internal Medicine Cardiovascular Disease; PCP Family Medicine; Visit Provider Internal Medicine Cardiovascular Disease
DX: I25.10 Atherosclerotic heart disease of native coronary artery without angina pectoris (principal); I25.82 Chronic total occlusion of coronary artery; I11.0 Hypertensive heart disease with heart failure; I50.9 Heart failure, unspecified; Z95.5 Presence of coronary angioplasty implant and graft; E78.5 Hyperlipidemia, unspecified; E66.9 Obesity, unspecified; Z68.38 Body mass index [BMI] 38.0-38.9, adult; Z79.82 Long term (current) use of aspirin; Z79.02 Long term (current) use of antithrombotics/antiplatelets; G47.33 Obstructive sleep apnea (adult) (pediatric); Z85.46 Personal history of malignant neoplasm of prostate; Z82.49 Family history of ischemic heart disease and other diseases of the circulatory system
CPT/HCPCS: 36415; 93458; 96374; 99152; 99153; C1725; C1769; C1874; C1887; C1894; C9600; J1644; J1938; J2250; J3010; J3490; J7030; J9999; Q0163; Q9967

== ENCOUNTER 2025-04-30 10:47 | Oncology outpatient (recurring) (ONCR) | payer MEDICARE, OTHER, SELFPAY ==
[2025-04-30 11:28] LABS: Alanine Aminotransferase 12 U/L (0-41); Albumin Level 4.1 g/dL (3.5-5.2); Alkaline Phosphatase 65 U/L (40-130); Aspartate Amino Transferase 13 U/L (0-40); Blood Urea Nitrogen 17 mg/dL (8-23); Calcium 8.9 mg/dL (8.5-10.5); Carbon Dioxide 26 mmol/L (22-29); Chloride 103 mmol/L (98-107); Globulin 2.8 g/dL (1.3-4.6); Glucose 114 mg/dL (65-115); Osmolality Calculated 288 mOsm/kg (285-295); Sodium 138 mmol/L (136-145); Total Protein 6.9 g/dL (6.6-8.7)
[2025-04-30 15:44] LABS: Ferritin 177 ng/mL (30-400); Iron 94 ug/dL (59-158); Total Iron Binding Capacity 232 mcg/dl; Unsaturated Iron Binding 138 ug/dL (112-347)
[2025-04-30 16:03] LABS: Anion Gap 13.3 (5-19); Potassium 4.3 mmol/L (3.5-5.1)
== END 2025-05-27 23:59 | disposition home or self-care (01) ==
PROVIDERS: PCP Family Medicine; Visit Provider Internal Medicine
DX: E83.110 Hereditary hemochromatosis (principal); G47.33 Obstructive sleep apnea (adult) (pediatric); E66.9 Obesity, unspecified; Z68.39 Body mass index [BMI] 39.0-39.9, adult; Z85.46 Personal history of malignant neoplasm of prostate
CPT/HCPCS: 36415; 80053; 82728; 82746; 83540; 83550; 83615; 86140; 99213

== ENCOUNTER → 2025-05-12 13:39 | Outpatient (BNVA) | payer MEDICARE, OTHER, SELFPAY | PROVIDERS: PCP Family Medicine; Visit Provider Nurse Practitioner Family | DX: I25.118 Atherosclerotic heart disease of native coronary artery with other forms of angina pectoris (principal); I11.0 Hypertensive heart disease with heart failure; I50.9 Heart failure, unspecified; E78.00 Pure hypercholesterolemia, unspecified; I95.1 Orthostatic hypotension; R06.09 Other forms of dyspnea | CPT/HCPCS: 99214 ==